=== PATIENT | female | born 1970 | race Caucasian/White ===

== ENCOUNTER 2024-09-11 16:02 | Inpatient (IN) | payer MEDICAID, SELFPAY ==
--- NOTE | ~2024-09-11 | US_ITS ---
CLINICAL HISTORY: sudden incontinence US Renal Comparison: None provided Findings: Right kidney normal size and echotexture, 10 cm length. Left kidney normal size and echotexture, 9.5 cm length. No hydronephrosis of either kidney. Normal color Doppler IMPRESSION: 1. Normal kidneys. This document has been electronically signed by: Claudia Watson MD on 09/24/2024 19:23:38
--- NOTE | ~2024-09-11 | CT_ITS ---
CLINICAL HISTORY: Pt reports enlarged palpable mass over [address] head without contrast Comparison: None provided Findings: No intra-axial mass, midline shift, hydrocephalus, or acute hemorrhage. No significant atrophy-like change or white matter disease. The visualized paranasal sinuses and mastoid air cells are normal. The orbits are within normal limits. Well-defined ovoid subcutaneous soft tissue density with scattered calcifications in the left lateral scalp measuring 1.5 x 1.2 cm. There is no acute fracture. IMPRESSION: 1. No acute intracranial findings. 2. Well-defined ovoid subcutaneous soft tissue density with scattered calcifications in the left lateral scalp measuring 1.5 x 1.2 cm, likely a sebaceous cyst. Given growth, consider histologic sampling. This document has been electronically signed by: Lupe Mathur MD on 09/13/2024 17:55:09
[2024-09-11 16:39] VITALS: BP 134/73; PULSE 71; RESP 18; TEMP 36.1; O2SAT 97
--- NOTE | 2024-09-11 17:54 | HE.PHANOTE ---
Addendum entered by Yousif Mayes [facility] 09/11/24 18:13: Nurse Estephania Raza was able to verify with Luz Valentine RN at [facility] [phone] that patient's methadone dose is 100 mg daily (dispensed to patient weekly). Original Note: RE: METHADONE DOSING Patient was at [facility] from 09/10/24 to 09/11/24 and received methadone 100 mg on 09/11/24@0828. Nurse Estephania Raza will leave note for tomorrow morning staff to fill out methadone verification form with methadone clinic.
--- NOTE | 2024-09-11 19:21 | PC.ADMIT ---
Traci? is a 54yr old woman with h/o MDD, anxiety & Borderline personality disorder. Traci was transferred here from [facility]. She?s admitted to , on a CV, for increasing depression & SI with a plan to overdose. She has a history of suicide attempts by overdose. She has had 4 inpatient psych hospitalizations, most recently in July 2024. Traci is A&Ox4, pleasant & cooperative with admission process. She endorses passive SI but contracts for safety while here. She denies HI/AVH. Traci has psych providers and has signed releases. Skin check is unremarkable. She was oriented to the unit & placed on 15min safety checks. She is in recovery takes daily methadone. Dose has been confirmed with [facility] in [place], [place]. She has her methadone dispensed weekly.
[2024-09-11 20:00] VITALS: BP 112/62; PULSE 54; RESP 15; TEMP 36.7; O2SAT 97
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
[2024-09-12] MEDS: methADONE HCl 20 MG/2 ML ORAL.CONC 100 MG PO (07:55)
[2024-09-12 08:06] VITALS: BP 110/76; PULSE 63; RESP 16; TEMP 36.6; O2SAT 97
[2024-09-12] MEDS: Venlafaxine HCl ER 150 MG CAP.ER.24H PO (08:39)
[2024-09-12 09:25] LABS: Hemoglobin A1C 116.7479 umol/L; Total Hemoglobin (HGBA1C) 3574.9326 umol/L
[2024-09-12 09:41] LABS: Cholesterol 220 mg/dL (<200); HDL Cholesterol 70 mg/dL (>40); Magnesium 2.4 mg/dL (1.6-2.6); Triglycerides 105 mg/dL (<150)
[2024-09-12 09:59] LABS: Free T4 (Free Thyroxine) 0.87 ng/dL (0.71-1.85); Thyroid Stimulating Hormone 1.07 uIU/mL (0.32-4.0)
[2024-09-12 10:08] LABS: Folate 10.7 ng/mL (> or = 4.0); Vitamin B12 469 pg/mL (200-900)
[2024-09-12] MEDS: Magnesium Hydrox/Alum Hydrox 30 ML ORAL.SUSP PO (10:53)
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
[2024-09-12 13:22] LABS: Appearance Urine Clear; Glucose Urine UA Negative (Negative); PH 6.0 (5.0-9.0); Specific Gravity - Urine <= 1.005 (1.005-1.025); UMIC TRIGGER UACC YES
[2024-09-12] MEDS: Nicotine 21 MG PATCH.TD24 TRANSDERMA (13:47)
[2024-09-12 14:24] LABS: UACC Culture Trigger YES
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
[2024-09-12 20:00] VITALS: BP 110/59; PULSE 70; RESP 15; TEMP 36.6; O2SAT 97
--- NOTE | 2024-09-13 05:35 | P.PNPSI_ITS ---
Subjective Subjective Date of Service: 09/13/24 Reason For Visit: MDD,borderline personality disorder,opiate use d/o Subjective Notes: Conditional Voluntary Interim History: Pt seen, discussed with the team. Today, she is willing to do CAT scan to begin to evaluate the mass she reports on her head which is increasing in size. CAT completed. Further questioning of Xanax regime-last OP rx 2 mg tid, not qid. As a result, tid dosing will continue. Pt on the phone, talking with family, visable in milieu. Medication Compliance: Yes Side effects from medications: No Attending Groups: Intermittent Review of Systems Acute medical concerns: No ?Mass on her head, increasing in size Medical Review of Systems: unchanged Review of Systems Review of Systems Denied today Mental Status Exam Mental Status Exam Patient Appearance: Appropriate Patient Orientation: Person, Place, Time and Situation Level of Consciousness: Alert Patient Behavior: Talkative and Good Eye Contact Mood Description: Depressed Affect Description: Flat (worried about her health and mass on her head) Patient Cognition Impaired: No Ability to Follow Directions: Fair Speech Pattern: Spontaneous Speech Memory Description: Episodic Impaired Hallucinations: None Delusions: Not Present Perceptual Disturbances: Depersonalization Thought Process: Rumination Thought Content: positive for Perseveration and positive for Suicidal Ideation Depressive Symptoms: Increased Anxiety and Thoughts of /Suicide Judgement: Fair Diagnostics Vital Signs (24Hr): Vital Signs - 24 hr 09/12/24 08:06 09/12/24 20:00 Temperature 97.9 F 98 F Pulse Rate 63 70 Respiratory Rate 16 15 Blood Pressure 110/76 110/59 L Pulse Oximetry 97 97 Oxygen Delivery Method Room Air Labs Labs: Laboratory Results - last 48 hr 09/12/24 09/12/24 08:50 12:25 Estimat Average Glucose 100 Hemoglobin A1c % 5.1 Magnesium 2.4 Triglycerides 105 Cholesterol 220 H LDL Cholesterol, Calc 129 H HDL Cholesterol 70 Vitamin B12 469 Folate 10.7 TSH 1.07 Free T4 0.87 Urine Color Yellow Urine Appearance Clear Urine pH 6.0 Ur Specific [place] <= 1.005 Urine Protein Negative Urine Glucose (UA) Negative Urine Ketones Negative Urine Blood Negative Urine Nitrite Negative Ur Leukocyte Esterase Small (1+) H Urine RBC 0-2 Urine WBC 0-5 Ur Squamous Epith Cells 6-10 Urine Bacteria Trace Hyaline Casts 0-2 Medications Medications Current Medications Acetaminophen (Acetaminophen 325 Mg Tablet) 975 mg PO Q6H PRN PRN Reason: Headache/Pain, Scale 1-10 Al Hydroxide/Mg Hydroxide (Magnesium Hydrox/Alum Hydrox 30 Ml Oral.Susp) 30 ml PO Q6H PRN PRN Reason: Heartburn/Nausea Last Admin: 09/12/24 10:53 Dose: 30 ml Alprazolam (Alprazolam 0.5 Mg Tablet) 2 mg PO TID [facility] Last Admin: 09/12/24 20:38 Dose: 2 mg Hydroxyzine HCl (Hydroxyzine Hcl 25 Mg Tablet) 25 mg PO Q6H PRN PRN Reason: mild anxiety Lamotrigine (Lamotrigine 100 Mg Tablet) 200 mg PO BID [facility] Last Admin: 09/12/24 20:38 Dose: 200 mg Magnesium Hydroxide (Milk Of Magnesia 30 Ml Oral.Susp) 30 ml PO DAILY PRN PRN Reason: Constipation Methadone HCl (Methadone Hcl 20 Mg/2 Ml Oral.Conc) 100 mg PO DAILY@0800 [facility] Last Admin: 09/12/24 07:55 Dose: 100 mg Nicotine (Nicotine 21 Mg Patch.Td24) 21 mg TRANSDERMA DAILY [facility] Ondansetron HCl (Ondansetron Odt 4 Mg Tab.Rapdis) 4 mg TRANSLINGU Q8H PRN PRN Reason: Nausea and Vomiting Last Admin: 09/12/24 21:58 Dose: 4 mg Pregabalin (Pregabalin 100 Mg Capsule) 100 mg PO BID [facility] Last Admin: 09/12/24 20:39 Dose: 100 mg Trazodone HCl (Trazodone Hcl 50 Mg Tablet) 50 mg PO BEDTIME MRX1 PRN PRN Reason: Insomnia Valacyclovir HCl (Valacyclovir Hcl 1,000 Mg Tablet) 1,000 mg PO DAILY [facility] Last Admin: 09/12/24 08:39 Dose: 1,000 mg Venlafaxine HCl (Venlafaxine Hcl Er 150 Mg Cap.Er.24h) 150 mg PO DAILY [facility] Last Admin: 09/12/24 08:39 Dose: 150 mg Allergies Allergies Allergy/AdvReac Type Severity Reaction Status Date / Time bupropion (From Wellbutrin) Allergy Severe Hives Verified 09/11/24 13:51 phenobarbital Allergy Severe Hives Verified 09/11/24 13:51 risperidone (From Risperdal) Allergy Severe Hives Verified 09/11/24 13:51 Sulfa (Sulfonamide Allergy Severe Hives Verified 09/11/24 13:51 Antibiotics) Assessment & Plan Assessment & Plan (1) Recurrent major depression: Status: Acute Code(s): F33.9 - Major depressive disorder, recurrent, unspecified (2) Opioid dependence on maintenance agonist therapy, no symptoms: Status: Acute Code(s): F11.20 - Opioid dependence, uncomplicated (3) Benzodiazepine dependence: Status: Acute Code(s): F13.20 - Sedative, hypnotic or anxiolytic dependence, uncomplicated Plan Admit CV, 15 minute checks Collateral Contact Diagnostics as needed ?neuro eval Encourage full milieu Continue current regime at this time Discharge planning 09/13 CAT Brain Continue current tx at this time, await results of CAT Reason for continued inpatient stay Substantial Risk for: rapid decompensation and med/psych decompensation Time Spent With Patient Time: Total time managing care of this patient today ____ minutes.
[2024-09-13] MEDS: methADONE HCl 20 MG/2 ML ORAL.CONC 100 MG PO (07:45)
[2024-09-13 08:27] VITALS: BP 105/58; PULSE 65; RESP 16; TEMP 36.6; O2SAT 98
[2024-09-13] MEDS: Nicotine 21 MG PATCH.TD24 TRANSDERMA (08:31)
[2024-09-13] MEDS: Venlafaxine HCl ER 150 MG CAP.ER.24H PO (08:31)
[2024-09-13 20:00] VITALS: BP 104/52; PULSE 74; RESP 15; TEMP 36.6; O2SAT 94
[2024-09-14] MEDS: methADONE HCl 20 MG/2 ML ORAL.CONC 100 MG PO (07:39)
[2024-09-14 08:00] VITALS: BP 106/64; PULSE 70; RESP 16; TEMP 36.4; O2SAT 97
[2024-09-14] MEDS: Venlafaxine HCl ER 150 MG CAP.ER.24H PO (08:35)
[2024-09-14] MEDS: Nicotine 21 MG PATCH.TD24 TRANSDERMA (08:35)
--- NOTE | 2024-09-14 15:48 | P.PNPSI_ITS ---
Subjective Subjective Date of Service: 09/14/24 Reason For Visit: MDD,borderline personality disorder,opiate use d/o Subjective Notes: Conditional Voluntary Healthcare Proxy: No Guardianship: No Medical Problems Affecting Mental Status: No Interim History: Review of CAT results and likelihood of sebaceous cyst with recommendation for histologic sampling. Pt will follow up with PCP upon discharge to schedule this (Dr. Woodward and GISSEL Carlson, [facility], [facility] [phone]) Review of medications and recent changes. Sertraline was cross tapered to Venlafaxine with current dose being in place pt reports for 6-7 weeks. Hx of Wellbutrin trial. Pt reports no improvement. Discussed escitalopram trial-pt agrees, will begin to cross taper Medication Compliance: Yes Side effects from medications: No (??) Attending Groups: No Review of Systems Review of Systems Denies Mental Status Exam Mental Status Exam Patient Appearance: Appropriate Patient Orientation: Person, Place, Time and Situation Level of Consciousness: Alert Patient Behavior: Talkative and Good Eye Contact Mood Description: Depressed Affect Description: Flat (worried about her health and mass on her head) Patient Cognition Impaired: No Ability to Follow Directions: Fair Speech Pattern: Spontaneous Speech Memory Description: Episodic Impaired Hallucinations: None Delusions: Not Present Perceptual Disturbances: Depersonalization Thought Process: Rumination Thought Content: positive for Perseveration and positive for Suicidal Ideation Depressive Symptoms: Increased Anxiety and Thoughts of /Suicide Judgement: Fair Diagnostics Vital Signs (24Hr): Vital Signs - 24 hr 09/13/24 20:00 09/14/24 08:00 Temperature 97.9 F 97.5 F Pulse Rate 74 70 Respiratory Rate 15 16 Blood Pressure 104/52 L 106/64 Pulse Oximetry 94 97 Oxygen Delivery Method Room Air Medications Medications Current Medications Acetaminophen (Acetaminophen 325 Mg Tablet) 975 mg PO Q6H PRN PRN Reason: Headache/Pain, Scale 1-10 Al Hydroxide/Mg Hydroxide (Magnesium Hydrox/Alum Hydrox 30 Ml Oral.Susp) 30 ml PO Q6H PRN PRN Reason: Heartburn/Nausea Last Admin: 09/12/24 10:53 Dose: 30 ml Alprazolam (Alprazolam 0.5 Mg Tablet) 2 mg PO TID PILO Last Admin: 09/14/24 08:34 Dose: 2 mg Hydroxyzine HCl (Hydroxyzine Hcl 25 Mg Tablet) 25 mg PO Q6H PRN PRN Reason: mild anxiety Lamotrigine (Lamotrigine 100 Mg Tablet) 200 mg PO BID [facility] Last Admin: 09/14/24 08:35 Dose: 200 mg Magnesium Hydroxide (Milk Of Magnesia 30 Ml Oral.Susp) 30 ml PO DAILY PRN PRN Reason: Constipation Methadone HCl (Methadone Hcl 20 Mg/2 Ml Oral.Conc) 100 mg PO DAILY@0800 [facility] Last Admin: 09/14/24 07:39 Dose: 100 mg Nicotine (Nicotine 21 Mg Patch.Td24) 21 mg TRANSDERMA DAILY [facility] Last Admin: 09/14/24 08:35 Dose: 21 mg Ondansetron HCl (Ondansetron Odt 4 Mg Tab.Rapdis) 4 mg TRANSLINGU Q8H PRN PRN Reason: Nausea and Vomiting Last Admin: 09/13/24 07:45 Dose: 4 mg Pregabalin (Pregabalin 100 Mg Capsule) 100 mg PO BID [facility] Last Admin: 09/14/24 08:35 Dose: 100 mg Trazodone HCl (Trazodone Hcl 50 Mg Tablet) 50 mg PO BEDTIME MRX1 PRN PRN Reason: Insomnia Valacyclovir HCl (Valacyclovir Hcl 1,000 Mg Tablet) 1,000 mg PO DAILY [facility] Last Admin: 09/14/24 08:35 Dose: 1,000 mg Venlafaxine HCl (Venlafaxine Hcl Er 150 Mg Cap.Er.24h) 150 mg PO DAILY [facility] Last Admin: 09/14/24 08:35 Dose: 150 mg Allergies Allergies Allergy/AdvReac Type Severity Reaction Status Date / Time bupropion (From Wellbutrin) Allergy Severe Hives Verified 09/11/24 13:51 phenobarbital Allergy Severe Hives Verified 09/11/24 13:51 risperidone (From Risperdal) Allergy Severe Hives Verified 09/11/24 13:51 Sulfa (Sulfonamide Allergy Severe Hives Verified 09/11/24 13:51 Antibiotics) Assessment & Plan Assessment & Plan (1) Recurrent major depression: Status: Acute Code(s): F33.9 - Major depressive disorder, recurrent, unspecified (2) Opioid dependence on maintenance agonist therapy, no symptoms: Status: Acute Code(s): F11.20 - Opioid dependence, uncomplicated (3) Benzodiazepine dependence: Status: Acute Code(s): F13.20 - Sedative, hypnotic or anxiolytic dependence, uncomplicated Plan Admit CV, 15 minute checks Collateral Contact Diagnostics as needed ?neuro eval Encourage full milieu Continue current regime at this time Discharge planning 09/13 CAT Brain Continue current tx at this time, await results of CAT 09/14 Cross taper to decrease Venlafaxine and titrate Escitalopram for trial Reason for continued inpatient stay Substantial Risk for: rapid decompensation Time Spent With Patient Time: Total time managing care of this patient today ____ minutes.
[2024-09-14 20:00] VITALS: BP 99/58; PULSE 72; RESP 16; TEMP 36.4; O2SAT 94
[2024-09-15] MEDS: methADONE HCl 20 MG/2 ML ORAL.CONC 100 MG PO (07:49)
[2024-09-15 07:54] VITALS: BP 103/61; PULSE 64; TEMP 36.3; O2SAT 98
[2024-09-15] MEDS: Nicotine 21 MG PATCH.TD24 TRANSDERMA (08:18)
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
[2024-09-15 20:00] VITALS: BP 124/71; PULSE 86; RESP 18; TEMP 36.3; O2SAT 96
[2024-09-16] MEDS: methADONE HCl 20 MG/2 ML ORAL.CONC 100 MG PO (07:42)
[2024-09-16 08:11] VITALS: BP 110/59; PULSE 65; TEMP 36.2; O2SAT 96
[2024-09-16] MEDS: Nicotine 21 MG PATCH.TD24 TRANSDERMA (08:39)
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
[2024-09-16 19:49] VITALS: BP 103/60; PULSE 82; TEMP 36.4; O2SAT 95
[2024-09-17] MEDS: methADONE HCl 20 MG/2 ML ORAL.CONC 100 MG PO (07:43)
[2024-09-17 08:18] VITALS: BP 106/59; PULSE 65; TEMP 36.4; O2SAT 95
--- NOTE | 2024-09-17 08:59 | HO.PSYCHPN ---
Subjective Subjective Date of Service: 09/17/24 Reason For Visit: MDD,borderline personality disorder,opiate use d/o Subjective Notes: Conditional Voluntary Interim History: Patient states that she is ?not so good. She notes that she has not been feeling great since she started taking venlafaxine. She notes adverse reactions of the medication including passing out while sitting at a gas station in her parked vehicle and losing sensation from her waist down, over a week ago; those symptoms completely resolved. She reports severe anxiety and depression. She endorses SI with a plan to take a couple of bottle of pills and not wake up. She currently denies HI/AH/VH. Medication Compliance: Yes Side effects from medications: No Attending Groups: Intermittent Review of Systems Acute medical concerns: No Mental Status Exam Mental Status Exam Narrative: Appearance: Casually dressed, adequate hygiene Behavior: Calm and cooperative throughout the interview. Eye contact is appropriate, and there are no signs of psychomotor agitation or retardation Speech: Talkative and spontaneous Thought process: logical and goal-directed Thought content: Suicide ideation Mood: Not so good Affect: Flat SI: Reports HI:denies VH/AH:none Delusions: none Insight/judment: Impaired insight and judgment Memory/cog: Alert, oriented x 4. grossly intact to conversational testing Diagnostics Vital Signs (24Hr): Vital Signs - 24 hr 09/16/24 19:49 09/17/24 08:18 Temperature 97.5 F 97.5 F Pulse Rate 82 65 Blood Pressure 103/60 106/59 L Pulse Oximetry 95 95 Oxygen Delivery Method Room Air Room Air Medications Medications Current Medications Acetaminophen (Acetaminophen 325 Mg Tablet) 975 mg PO Q6H PRN PRN Reason: Headache/Pain, Scale 1-10 Al Hydroxide/Mg Hydroxide (Magnesium Hydrox/Alum Hydrox 30 Ml Oral.Susp) 30 ml PO Q6H PRN PRN Reason: Heartburn/Nausea Last Admin: 09/12/24 10:53 Dose: 30 ml Alprazolam (Alprazolam 0.5 Mg Tablet) 2 mg PO TID [facility] Last Admin: 09/16/24 20:35 Dose: 2 mg Aripiprazole (Aripiprazole 2 Mg Tablet) 2 mg PO BEDTIME PILO Last Admin: 09/16/24 20:35 Dose: 2 mg Escitalopram Oxalate (Escitalopram Oxalate 5 Mg Tablet) 5 mg PO DAILY [facility] Last Admin: 09/16/24 08:39 Dose: 5 mg Hydroxyzine HCl (Hydroxyzine Hcl 25 Mg Tablet) 25 mg PO Q6H PRN PRN Reason: mild anxiety Lamotrigine (Lamotrigine 100 Mg Tablet) 200 mg PO BID [facility] Last Admin: 09/16/24 20:35 Dose: 200 mg Magnesium Hydroxide (Milk Of Magnesia 30 Ml Oral.Susp) 30 ml PO DAILY PRN PRN Reason: Constipation Methadone HCl (Methadone Hcl 20 Mg/2 Ml Oral.Conc) 100 mg PO DAILY@0800 [facility] Last Admin: 09/17/24 07:43 Dose: 100 mg Nicotine (Nicotine 21 Mg Patch.Td24) 21 mg TRANSDERMA DAILY [facility] Last Admin: 09/16/24 08:39 Dose: 21 mg Ondansetron HCl (Ondansetron Odt 4 Mg Tab.Rapdis) 4 mg TRANSLINGU Q8H PRN PRN Reason: Nausea and Vomiting Last Admin: 09/16/24 17:25 Dose: 4 mg Pregabalin (Pregabalin 100 Mg Capsule) 100 mg PO 0900,1500 [facility] Last Admin: 09/16/24 14:40 Dose: 100 mg Valacyclovir HCl (Valacyclovir Hcl 1,000 Mg Tablet) 1,000 mg PO DAILY [facility] Last Admin: 09/16/24 08:39 Dose: 1,000 mg Venlafaxine HCl 37.5 mg/ (Venlafaxine HCl 75 mg) 112.5 mg PO DAILY [facility] Last Admin: 09/16/24 08:39 Dose: 112.5 mg Allergies Allergies Allergy/AdvReac Type Severity Reaction Status Date / Time bupropion (From Wellbutrin) Allergy Severe Hives Verified 09/11/24 13:51 phenobarbital Allergy Severe Hives Verified 09/11/24 13:51 risperidone (From Risperdal) Allergy Severe Hives Verified 09/11/24 13:51 Sulfa (Sulfonamide Allergy Severe Hives Verified 09/11/24 13:51 Antibiotics) Assessment & Plan Assessment & Plan (1) Recurrent major depression: Status: Acute Code(s): F33.9 - Major depressive disorder, recurrent, unspecified (2) Opioid dependence on maintenance agonist therapy, no symptoms: Status: Acute Code(s): F11.20 - Opioid dependence, uncomplicated (3) Benzodiazepine dependence: Status: Acute Code(s): F13.20 - Sedative, hypnotic or anxiolytic dependence, uncomplicated Plan Admit CV, 15 minute checks Collateral Contact Diagnostics as needed ?neuro eval Encourage full milieu Continue current regime at this time Discharge planning 09/13 CAT Brain Continue current tx at this time, await results of CAT 09/14 Cross taper to decrease Venlafaxine and titrate Escitalopram for trial 09/16 Continue tx 09/17: Patient states that she is ?not so good. She notes that she has not been feeling great since she started taking venlafaxine. She notes adverse reactions of the medication including passing out while sitting at a gas station in her parked vehicle and losing sensation from her waist down, over a week ago; those symptoms completely resolved. She reports severe anxiety and depression. She endorses SI with a plan to take a couple of bottle of pills and not wake up. She currently denies HI/AH/VH. Continue current treatment regimen. Patient educated on: therapeutic strategies Reason for continued inpatient stay Substantial Risk for: harm to self and rapid decompensation Time Spent With Patient Time: Total time managing care of this patient today ____ minutes.
[2024-09-17] MEDS: Nicotine 21 MG PATCH.TD24 TRANSDERMA (09:12)
[2024-09-17 20:00] VITALS: BP 131/61; PULSE 77; TEMP 36.3; O2SAT 90
[2024-09-18] MEDS: methADONE HCl 20 MG/2 ML ORAL.CONC 100 MG PO (07:54)
[2024-09-18 08:09] VITALS: BP 115/60; PULSE 64; TEMP 36.3; O2SAT 96
[2024-09-18] MEDS: Nicotine 21 MG PATCH.TD24 TRANSDERMA (08:40)
--- NOTE | 2024-09-18 10:54 | P.PNPSI_ITS ---
Subjective Subjective Date of Service: 09/18/24 Reason For Visit: MDD,borderline personality disorder,opiate use d/o Subjective Notes: Conditional Voluntary Healthcare Proxy: No Guardianship: No Medical Problems Affecting Mental Status: No Interim History: Pt sleeping today when attempted visit. Plan to increase Lexapro to 10 mg 09/19 we will proceed with. Medication Compliance: Yes Side effects from medications: No Attending Groups: Yes Review of Systems Acute medical concerns: No Review of Systems Review of Systems Yes Unobtainable due to mental status Mental Status Exam Mental Status Exam Patient Appearance: Appropriate Patient Behavior: Asleep Diagnostics Vital Signs (24Hr): Vital Signs - 24 hr 09/17/24 20:00 09/18/24 08:09 Temperature 97.4 F 97.4 F Pulse Rate 77 64 Blood Pressure 131/61 115/60 Pulse Oximetry 90 L 96 Oxygen Delivery Method Room Air Room Air Medications Medications Current Medications Acetaminophen (Acetaminophen 325 Mg Tablet) 975 mg PO Q6H PRN PRN Reason: Headache/Pain, Scale 1-10 Al Hydroxide/Mg Hydroxide (Magnesium Hydrox/Alum Hydrox 30 Ml Oral.Susp) 30 ml PO Q6H PRN PRN Reason: Heartburn/Nausea Last Admin: 09/12/24 10:53 Dose: 30 ml Alprazolam (Alprazolam 0.5 Mg Tablet) 2 mg PO TID [facility] Last Admin: 09/18/24 08:41 Dose: 2 mg Aripiprazole (Aripiprazole 2 Mg Tablet) 2 mg PO BEDTIME [facility] Last Admin: 09/17/24 21:39 Dose: 2 mg Escitalopram Oxalate (Escitalopram Oxalate 5 Mg Tablet) 5 mg PO DAILY [facility] Last Admin: 09/18/24 08:40 Dose: 5 mg Hydroxyzine HCl (Hydroxyzine Hcl 25 Mg Tablet) 25 mg PO Q6H PRN PRN Reason: mild anxiety Lamotrigine (Lamotrigine 100 Mg Tablet) 200 mg PO BID [facility] Last Admin: 09/18/24 08:40 Dose: 200 mg Magnesium Hydroxide (Milk Of Magnesia 30 Ml Oral.Susp) 30 ml PO DAILY PRN PRN Reason: Constipation Methadone HCl (Methadone Hcl 20 Mg/2 Ml Oral.Conc) 100 mg PO DAILY@0800 [facility] Last Admin: 09/18/24 07:54 Dose: 100 mg Nicotine (Nicotine 21 Mg Patch.Td24) 21 mg TRANSDERMA DAILY [facility] Last Admin: 09/18/24 08:40 Dose: 21 mg Ondansetron HCl (Ondansetron Odt 4 Mg Tab.Rapdis) 4 mg TRANSLINGU Q8H PRN PRN Reason: Nausea and Vomiting Last Admin: 09/17/24 17:46 Dose: 4 mg Pregabalin (Pregabalin 100 Mg Capsule) 100 mg PO 0900,1500 [facility] Last Admin: 09/18/24 08:41 Dose: 100 mg Valacyclovir HCl (Valacyclovir Hcl 1,000 Mg Tablet) 1,000 mg PO DAILY [facility] Last Admin: 09/18/24 08:41 Dose: 1,000 mg Venlafaxine HCl 37.5 mg/ (Venlafaxine HCl 75 mg) 112.5 mg PO DAILY [facility] Last Admin: 09/18/24 08:41 Dose: 112.5 mg Allergies Allergies Allergy/AdvReac Type Severity Reaction Status Date / Time bupropion (From Wellbutrin) Allergy Severe Hives Verified 09/11/24 13:51 phenobarbital Allergy Severe Hives Verified 09/11/24 13:51 risperidone (From Risperdal) Allergy Severe Hives Verified 09/11/24 13:51 Sulfa (Sulfonamide Allergy Severe Hives Verified 09/11/24 13:51 Antibiotics) Assessment & Plan Assessment & Plan (1) Recurrent major depression: Status: Acute Code(s): F33.9 - Major depressive disorder, recurrent, unspecified (2) Opioid dependence on maintenance agonist therapy, no symptoms: Status: Acute Code(s): F11.20 - Opioid dependence, uncomplicated (3) Benzodiazepine dependence: Status: Acute Code(s): F13.20 - Sedative, hypnotic or anxiolytic dependence, uncomplicated Plan Admit CV, 15 minute checks Collateral Contact Diagnostics as needed ?neuro eval Encourage full milieu Continue current regime at this time Discharge planning 09/13 CAT Brain Continue current tx at this time, await results of CAT 09/14 Cross taper to decrease Venlafaxine and titrate Escitalopram for trial 09/16 Continue tx 09/17: Patient states that she is ?not so good. She notes that she has not been feeling great since she started taking venlafaxine. She notes adverse reactions of the medication including passing out while sitting at a gas station in her parked vehicle and losing sensation from her waist down, over a week ago; those symptoms completely resolved. She reports severe anxiety and depression. She endorses SI with a plan to take a couple of bottle of pills and not wake up. She currently denies HI/AH/VH. Continue current treatment regimen. 09/18: As planned, increase Lexapro to 10 mg. Continue Venlafaxine tapering (decreased to 112.5 from 150 mg this week). Reason for continued inpatient stay Substantial Risk for: rapid decompensation Time Spent With Patient Time: Total time managing care of this patient today ____ minutes.
[2024-09-19] MEDS: methADONE HCl 20 MG/2 ML ORAL.CONC 100 MG PO (07:51)
[2024-09-19 08:00] VITALS: BP 104/59; PULSE 67; TEMP 36.8; O2SAT 95
[2024-09-19] MEDS: Nicotine 21 MG PATCH.TD24 TRANSDERMA (08:08)
[2024-09-19 14:05] VITALS: BP 109/57; PULSE 67; RESP 14; TEMP 36.9; O2SAT 96
[2024-09-19 14:32] LABS: Glucose, Whole Blood 105 mg/dL (60-115)
--- NOTE | 2024-09-19 14:38 | PM.EVENT ---
Event Note Date of Service: 09/19/24 Event Note: called by RN for report of unwitnessed fall Pt reports this is her 4th episode in the last 3 weeks of amnesia followed by fall without clear LOC. She just feels generalized weakness all of a sudden then falls. Denies any head trauma, headache, joint pain, arm pain, or leg pain. Pt is fully alert + oriented, lungs clear, RRR no m/r/g, no focal weakness noted, ambulating with no difficulty. Pt does have a sebaceous cyst over the L scalp and that was also noted on CT head 09/13/25. Suspect symptoms related to either her underlying psychiatric condition or medication changes being made by psychiatry team. Suggest review of medication changes; will order orthostatic vital signs; may benefit from PT consult. Time Spent With Patient Time: Total time managing care of this patient today ____ minutes.
[2024-09-19 14:48] VITALS: BP 117/57; PULSE 87; RESP 14; O2SAT 93
[2024-09-19 14:49] VITALS: BP 92/53; PULSE 81; RESP 16; O2SAT 94
[2024-09-19 14:50] VITALS: BP 97/54; PULSE 78; RESP 16; O2SAT 96
--- NOTE | 2024-09-19 15:23 | PC.NURSE ---
POST FALL At 1405 pt's roommate approached staff to state pt had fallen in her room. Pt was then found seated on the floor in her room. Pt awake and alert. Pt reported fall in room that was unwitnessed by staff. Pt reported she was standing in front of her table, her legs became weak, and she fell backwards onto her buttocks. Pt denied hitting her head. Pt's roommate present in room at that time and reported she witnessed the same events pt reported to staff. Pt denied pain/discomfort. Pt denied dizziness or lightheadedness. VS and POC obtained. Pt was assisted back to bed. Pt continued to endorse weakness in her legs, and stated she was confused to the time. Pt reported she believed it was 0800 and stated that she did not remember any events from today prior to moments before the fall. Pt stated she remembered getting out of bed to look at the meal tray that was on her table. Pt stated she believed that was her breakfast tray. Pt stated as she was leaning forward to read the ticket on the meal tray, her legs became weak and she sustained the fall. information security officer Ellen Marion aware and at bedside. Covering provider Dr. Dior notified. Nursing supervisor home energy consultant Rohini Shafer and hospitalist Dr. Coates notified. Nursing supervisor home energy consultant, and Dr. Coates at bedside to evaluate. Orthostatic BPs obtained and documented per orders. Per Dr. Dior afternoon Lyrica and Xanax doses held. Pt placed on high fall risk precautions and 5 minute checks for increased safety.
--- NOTE | 2024-09-19 17:23 | HO.PSYCHPN ---
Subjective Subjective Date of Service: 09/19/24 Reason For Visit: MDD,borderline personality disorder,opiate use d/o Interim History: Patient feels unsteady and dizzy and wondering if it is related to the transition from Effexor to Lexapro. She had an unwitnessed fall on her buttocks. Seen by medicine. Patient's Xanax and Lyrica midday doses was held. Remains depressed and helpless/hopeless. Review of Systems Review of Systems Denies Yes Unobtainable due to mental status Reports vertigo and Reports dizziness Reports vertigo, Reports dizziness, Reports lack of coordination and Reports Sensory deficit (Neuro) Mental Status Exam Mental Status Exam Narrative: Appearance: Casually dressed, adequate hygiene Behavior: Calm and cooperative throughout the interview. Eye contact is appropriate, and there are no signs of psychomotor agitation or retardation Speech: Talkative and spontaneous Thought process: logical and goal-directed Thought content: Suicide ideation Mood: Not so good Affect: Flat SI: Reports HI:denies VH/AH:none Delusions: none Insight/judment: Impaired insight and judgment Memory/cog: Alert, oriented x 4. grossly intact to conversational testing Patient Appearance: Appropriate Patient Orientation: Person, Place, Time and Situation Level of Consciousness: Alert Patient Behavior: Asleep Mood Description: Depressed Affect Description: Flat (worried about her health and mass on her head) Patient Cognition Impaired: No Ability to Follow Directions: Fair Speech Pattern: Spontaneous Speech Memory Description: Episodic Impaired Diagnostics Vital Signs (24Hr): Vital Signs - 24 hr 09/19/24 08:00 09/19/24 14:05 09/19/24 14:48 Temperature 98.2 F 98.4 F Pulse Rate 67 67 87 Respiratory Rate 14 14 Blood Pressure 104/59 L 109/57 L 117/57 L Pulse Oximetry 95 96 93 Oxygen Delivery Method Room Air Room Air 09/19/24 14:49 09/19/24 14:50 Temperature Pulse Rate 81 78 Respiratory Rate 16 16 Blood Pressure 92/53 L 97/54 L Pulse Oximetry 94 96 Oxygen Delivery Method Room Air Room Air Labs Labs: Laboratory Results - last 48 hr 09/19/24 14:28 POC Glucose 105 Medications Medications Current Medications Acetaminophen (Acetaminophen 325 Mg Tablet) 975 mg PO Q6H PRN PRN Reason: Headache/Pain, Scale 1-10 Al Hydroxide/Mg Hydroxide (Magnesium Hydrox/Alum Hydrox 30 Ml Oral.Susp) 30 ml PO Q6H PRN PRN Reason: Heartburn/Nausea Last Admin: 09/12/24 10:53 Dose: 30 ml Alprazolam (Alprazolam 0.5 Mg Tablet) 2 mg PO TID [facility] On Hold: 09/19/24 14:44 Last Admin: 09/19/24 08:32 Dose: 2 mg Escitalopram Oxalate (Escitalopram Oxalate 10 Mg Tablet) 10 mg PO DAILY [facility] Last Admin: 09/19/24 08:07 Dose: 10 mg Hydroxyzine HCl (Hydroxyzine Hcl 25 Mg Tablet) 25 mg PO Q6H PRN PRN Reason: mild anxiety Lamotrigine (Lamotrigine 100 Mg Tablet) 200 mg PO BID [facility] Last Admin: 09/19/24 08:07 Dose: 200 mg Magnesium Hydroxide (Milk Of Magnesia 30 Ml Oral.Susp) 30 ml PO DAILY PRN PRN Reason: Constipation Methadone HCl (Methadone Hcl 20 Mg/2 Ml Oral.Conc) 100 mg PO DAILY@0800 [facility] Last Admin: 09/19/24 07:51 Dose: 100 mg Nicotine (Nicotine 21 Mg Patch.Td24) 21 mg TRANSDERMA DAILY [facility] Last Admin: 09/19/24 08:08 Dose: 21 mg Ondansetron HCl (Ondansetron Odt 4 Mg Tab.Rapdis) 4 mg TRANSLINGU Q8H PRN PRN Reason: Nausea and Vomiting Last Admin: 09/18/24 21:20 Dose: 4 mg Pregabalin (Pregabalin 100 Mg Capsule) 100 mg PO 0900,1500 [facility] On Hold: 09/19/24 14:43 Last Admin: 09/19/24 08:07 Dose: 100 mg Valacyclovir HCl (Valacyclovir Hcl 1,000 Mg Tablet) 1,000 mg PO DAILY [facility] Last Admin: 09/19/24 08:07 Dose: 1,000 mg Venlafaxine HCl 37.5 mg/ (Venlafaxine HCl 75 mg) 112.5 mg PO DAILY [facility] Last Admin: 09/19/24 08:07 Dose: 112.5 mg Allergies Allergies Allergy/AdvReac Type Severity Reaction Status Date / Time bupropion (From Wellbutrin) Allergy Severe Hives Verified 09/11/24 13:51 phenobarbital Allergy Severe Hives Verified 09/11/24 13:51 risperidone (From Risperdal) Allergy Severe Hives Verified 09/11/24 13:51 Sulfa (Sulfonamide Allergy Severe Hives Verified 09/11/24 13:51 Antibiotics) Assessment & Plan Assessment & Plan (1) Recurrent major depression: Status: Acute Code(s): F33.9 - Major depressive disorder, recurrent, unspecified (2) Opioid dependence on maintenance agonist therapy, no symptoms: Status: Acute Code(s): F11.20 - Opioid dependence, uncomplicated (3) Benzodiazepine dependence: Status: Acute Code(s): F13.20 - Sedative, hypnotic or anxiolytic dependence, uncomplicated Plan Admit CV, 15 minute checks Collateral Contact Diagnostics as needed ?neuro eval Encourage full milieu Continue current regime at this time Discharge planning 09/13 CAT Brain Continue current tx at this time, await results of CAT 09/14 Cross taper to decrease Venlafaxine and titrate Escitalopram for trial 09/16 Continue tx 09/17: Patient states that she is ?not so good. She notes that she has not been feeling great since she started taking venlafaxine. She notes adverse reactions of the medication including passing out while sitting at a gas station in her parked vehicle and losing sensation from her waist down, over a week ago; those symptoms completely resolved. She reports severe anxiety and depression. She endorses SI with a plan to take a couple of bottle of pills and not wake up. She currently denies HI/AH/VH. Continue current treatment regimen. 09/18: As planned, increase Lexapro to 10 mg. Continue Venlafaxine tapering (decreased to 112.5 from 150 mg this week). 09/19: Some of patient's symptoms are chronic and she has complained of same before. Combination of multiple sedating medications and maybe lowering dose of Effexor. Will attempt decrease in BZD dosing. Per [facility] patient has been on high dose BZD for a long time (Klonopin 2 mg QID a few months ago and switched to Xanax 2 mg TID by her OP treatment team.) Continue monitor cross taper. 5 min checks. Reason for continued inpatient stay Substantial Risk for: harm to self, inability to function and rapid decompensation Time Spent With Patient Time: Total time managing care of this patient today ____ minutes.
--- NOTE | 2024-09-19 18:26 | PC.NURSE ---
Within a half hour after pt's 1405 fall pt requested scheduled 1500 dose of Xanax and Lyrica. Per provider both 1500 doses held. Pt informed of hold order and became upset. Pt reported I've been taking Xanax for 8 years and I will go into immediate withdrawals. I will start having seizures. At 1625 pt reported It's already starting , and then stated she was experiencing diarrhea. Pt reported she believed this was a result of not receiving her 1500 Xanax. Provider made aware of pt's concerns. CIWA-B obtained per provider request, which pt scored 18 and provider made aware. Provider stated he would lift the hold for the HS dose and stated pt could have HS Xanax dose as early as 1900. Pt made aware and stated she was in agreement with plan. Pt received prn Imodium for multiple episodes of loose stool. [ End ]
[2024-09-19 20:00] VITALS: BP 102/52; PULSE 80; RESP 16; TEMP 36.2; O2SAT 97
[2024-09-20] MEDS: methADONE HCl 20 MG/2 ML ORAL.CONC 100 MG PO (07:42)
[2024-09-20 08:00] VITALS: BP 119/63; PULSE 71; TEMP 36.3; O2SAT 94
[2024-09-20] MEDS: Nicotine 21 MG PATCH.TD24 TRANSDERMA (08:33)
--- NOTE | 2024-09-20 09:44 | HO.PSYCHPN ---
Subjective Subjective Date of Service: 09/20/24 Reason For Visit: MDD,borderline personality disorder,opiate use d/o Interim History: Patient reports she was very anxious and had nausea and diarrhea yesterday after the midday dose of Xanax was held due to her fall. She says she has been on Xanax or a benzo for 8 years. She says that yesterday she tripped and wasn't sedated. She was educated about the interactions of her medications (mathadone, bzd, lyrica) and all contributing to fall risk and injury. She was willing to taper down on the Lyrica. She denies any dizziness or sedation today. Remains depressed and helpless/hopeless. Review of Systems Review of Systems Denies Yes Unobtainable due to mental status Reports vertigo and Reports dizziness Reports vertigo, Reports dizziness, Reports lack of coordination and Reports Sensory deficit (Neuro) Mental Status Exam Mental Status Exam Narrative: Appearance: Casually dressed, adequate hygiene Behavior: Calm and cooperative throughout the interview. Eye contact is appropriate, and there are no signs of psychomotor agitation or retardation Speech: Talkative and spontaneous Thought process: logical and goal-directed Thought content: Suicide ideation Mood: Not so good Affect: Flat SI: Reports HI:denies VH/AH:none Delusions: none Insight/judment: Impaired insight and judgment Memory/cog: Alert, oriented x 4. grossly intact to conversational testing Patient Appearance: Appropriate Patient Orientation: Person, Place, Time and Situation Level of Consciousness: Alert Patient Behavior: Asleep Mood Description: Depressed Affect Description: Flat (worried about her health and mass on her head) Patient Cognition Impaired: No Ability to Follow Directions: Fair Speech Pattern: Spontaneous Speech Memory Description: Episodic Impaired Diagnostics Vital Signs (24Hr): Vital Signs - 24 hr 09/19/24 14:05 09/19/24 14:48 09/19/24 14:49 Temperature 98.4 F Pulse Rate 67 87 81 Respiratory Rate 14 14 16 Blood Pressure 109/57 L 117/57 L 92/53 L Pulse Oximetry 96 93 94 Oxygen Delivery Method Room Air Room Air 09/19/24 14:50 09/19/24 20:00 09/20/24 08:00 Temperature 97.2 F 97.3 F Pulse Rate 78 80 71 Respiratory Rate 16 16 Blood Pressure 97/54 L 102/52 L 119/63 Pulse Oximetry 96 97 94 Oxygen Delivery Method Room Air Room Air Room Air Labs Labs: Laboratory Results - last 48 hr 09/19/24 14:28 POC Glucose 105 Medications Medications Current Medications Acetaminophen (Acetaminophen 325 Mg Tablet) 975 mg PO Q6H PRN PRN Reason: Headache/Pain, Scale 1-10 Al Hydroxide/Mg Hydroxide (Magnesium Hydrox/Alum Hydrox 30 Ml Oral.Susp) 30 ml PO Q6H PRN PRN Reason: Heartburn/Nausea Last Admin: 09/12/24 10:53 Dose: 30 ml Alprazolam (Alprazolam 0.5 Mg Tablet) 2 mg PO TID [facility] Last Admin: 09/20/24 08:34 Dose: 2 mg Escitalopram Oxalate (Escitalopram Oxalate 10 Mg Tablet) 10 mg PO DAILY [facility] Last Admin: 09/20/24 08:35 Dose: 10 mg Hydroxyzine HCl (Hydroxyzine Hcl 25 Mg Tablet) 25 mg PO Q6H PRN PRN Reason: mild anxiety Lamotrigine (Lamotrigine 100 Mg Tablet) 200 mg PO BID [facility] Last Admin: 09/20/24 08:34 Dose: 200 mg Loperamide HCl (Loperamide Hcl 2 Mg Capsule) 2 mg PO Q6H PRN PRN Reason: Diarrhea Last Admin: 09/19/24 18:22 Dose: 2 mg Magnesium Hydroxide (Milk Of Magnesia 30 Ml Oral.Susp) 30 ml PO DAILY PRN PRN Reason: Constipation Methadone HCl (Methadone Hcl 20 Mg/2 Ml Oral.Conc) 100 mg PO DAILY@0800 [facility] Last Admin: 09/20/24 07:42 Dose: 100 mg Nicotine (Nicotine 21 Mg Patch.Td24) 21 mg TRANSDERMA DAILY [facility] Last Admin: 09/20/24 08:33 Dose: 21 mg Ondansetron HCl (Ondansetron Odt 4 Mg Tab.Rapdis) 4 mg TRANSLINGU Q8H PRN PRN Reason: Nausea and Vomiting Last Admin: 09/20/24 09:33 Dose: 4 mg Pregabalin (Pregabalin 100 Mg Capsule) 100 mg PO 0900,1500 [facility] On Hold: 09/19/24 14:43 Last Admin: 09/19/24 08:07 Dose: 100 mg Valacyclovir HCl (Valacyclovir Hcl 1,000 Mg Tablet) 1,000 mg PO DAILY [facility] Last Admin: 09/20/24 08:35 Dose: 1,000 mg Venlafaxine HCl 37.5 mg/ (Venlafaxine HCl 75 mg) 112.5 mg PO DAILY [facility] Last Admin: 09/20/24 08:35 Dose: 112.5 mg Allergies Allergies Allergy/AdvReac Type Severity Reaction Status Date / Time bupropion (From Wellbutrin) Allergy Severe Hives Verified 09/11/24 13:51 phenobarbital Allergy Severe Hives Verified 09/11/24 13:51 risperidone (From Risperdal) Allergy Severe Hives Verified 09/11/24 13:51 Sulfa (Sulfonamide Allergy Severe Hives Verified 09/11/24 13:51 Antibiotics) Assessment & Plan Assessment & Plan (1) Recurrent major depression: Status: Acute Code(s): F33.9 - Major depressive disorder, recurrent, unspecified (2) Opioid dependence on maintenance agonist therapy, no symptoms: Status: Acute Code(s): F11.20 - Opioid dependence, uncomplicated (3) Benzodiazepine dependence: Status: Acute Code(s): F13.20 - Sedative, hypnotic or anxiolytic dependence, uncomplicated Plan Admit CV, 15 minute checks Collateral Contact Diagnostics as needed ?neuro eval Encourage full milieu Continue current regime at this time Discharge planning 09/13 CAT Brain Continue current tx at this time, await results of CAT 09/14 Cross taper to decrease Venlafaxine and titrate Escitalopram for trial 09/16 Continue tx 09/17: Patient states that she is ?not so good. She notes that she has not been feeling great since she started taking venlafaxine. She notes adverse reactions of the medication including passing out while sitting at a gas station in her parked vehicle and losing sensation from her waist down, over a week ago; those symptoms completely resolved. She reports severe anxiety and depression. She endorses SI with a plan to take a couple of bottle of pills and not wake up. She currently denies HI/AH/VH. Continue current treatment regimen. 09/18: As planned, increase Lexapro to 10 mg. Continue Venlafaxine tapering (decreased to 112.5 from 150 mg this week). 09/19: Some of patient's symptoms are chronic and she has complained of same before. Combination of multiple sedating medications and maybe lowering dose of Effexor. Will attempt decrease in BZD dosing. Per [facility] patient has been on high dose BZD for a long time (Klonopin 2 mg QID a few months ago and switched to Xanax 2 mg TID by her OP treatment team.) Continue monitor cross taper. 5 min checks. 09/20: Decrease Lyrica to 50 mg BID. Consider slow taper of Xanax. Continue cross taper Effexor to Lexapro per primary team. Reason for continued inpatient stay Substantial Risk for: harm to self, inability to function and rapid decompensation Time Spent With Patient Time: Total time managing care of this patient today ____ minutes.
[2024-09-20 19:56] VITALS: BP 106/59; PULSE 79; RESP 15; TEMP 36.5; O2SAT 96
[2024-09-21] MEDS: methADONE HCl 20 MG/2 ML ORAL.CONC 100 MG PO (07:48)
[2024-09-21 08:00] VITALS: BP 130/67; PULSE 74; RESP 16; TEMP 36.6; O2SAT 95
--- NOTE | 2024-09-21 12:34 | P.PNPSI_ITS ---
Subjective Subjective Date of Service: 09/21/24 Reason For Visit: MDD,borderline personality disorder,opiate use d/o Subjective Notes: Conditional Voluntary Healthcare Proxy: No Guardianship: No Medical Problems Affecting Mental Status: No Interim History: Presents today as overmedicated, however, denies this. Fall over the weekend, I tripped . Denies this being from sedation. Lyrica tapered to 50 mg bid. Reports flu-like sx will test for sars/flu/rsv. Reports Lexapro is not tolerated. Will DC and return to Venlafaxine dosing. Also reports Nicotine Patch is not tolerated, will DC as well. Medication Compliance: Yes Side effects from medications: Yes (GI sx, sedation) Attending Groups: No Review of Systems Review of Systems GI sx, sedation, flu-like sx Mental Status Exam Mental Status Exam Patient Appearance: Fatigued Patient Orientation: Person, Place, Time and Situation Level of Consciousness: Alert Patient Behavior: Talkative and Good Eye Contact Mood Description: Depressed Affect Description: Flat Patient Cognition Impaired: No Ability to Follow Directions: Good Speech Pattern: Spontaneous Speech Memory Description: Episodic Impaired Hallucinations: None Delusions: Not Present Thought Process: Rumination Thought Content: positive for Circumstantial and positive for Perseveration Depressive Symptoms: Increased Fatigue and Loss of Energy Judgement: Fair Diagnostics Vital Signs (24Hr): Vital Signs - 24 hr 09/20/24 19:56 09/21/24 08:00 Temperature 97.7 F 97.8 F Pulse Rate 79 74 Respiratory Rate 15 16 Blood Pressure 106/59 L 130/67 Pulse Oximetry 96 95 Oxygen Delivery Method Room Air Labs Labs: Laboratory Results - last 48 hr 09/19/24 14:28 POC Glucose 105 Medications Medications Current Medications Acetaminophen (Acetaminophen 325 Mg Tablet) 975 mg PO Q6H PRN PRN Reason: Headache/Pain, Scale 1-10 Al Hydroxide/Mg Hydroxide (Magnesium Hydrox/Alum Hydrox 30 Ml Oral.Susp) 30 ml PO Q6H PRN PRN Reason: Heartburn/Nausea Last Admin: 09/12/24 10:53 Dose: 30 ml Alprazolam (Alprazolam 0.5 Mg Tablet) 2 mg PO TID COUNT INCLUDES THE [facility] Last Admin: 09/21/24 08:32 Dose: 2 mg Escitalopram Oxalate (Escitalopram Oxalate 10 Mg Tablet) 10 mg PO DAILY COUNT INCLUDES THE [facility] Last Admin: 09/21/24 08:32 Dose: 10 mg Hydroxyzine HCl (Hydroxyzine Hcl 25 Mg Tablet) 25 mg PO Q6H PRN PRN Reason: mild anxiety Lamotrigine (Lamotrigine 100 Mg Tablet) 200 mg PO BID COUNT INCLUDES THE [facility] Last Admin: 09/21/24 08:32 Dose: 200 mg Loperamide HCl (Loperamide Hcl 2 Mg Capsule) 2 mg PO Q6H PRN PRN Reason: Diarrhea Last Admin: 09/19/24 18:22 Dose: 2 mg Magnesium Hydroxide (Milk Of Magnesia 30 Ml Oral.Susp) 30 ml PO DAILY PRN PRN Reason: Constipation Methadone HCl (Methadone Hcl 20 Mg/2 Ml Oral.Conc) 100 mg PO DAILY@0800 COUNT INCLUDES THE [facility] Last Admin: 09/21/24 07:48 Dose: 100 mg Nicotine (Nicotine 21 Mg Patch.Td24) 21 mg TRANSDERMA DAILY COUNT INCLUDES THE [facility] Last Admin: 09/21/24 08:56 Dose: Not Given Ondansetron HCl (Ondansetron Odt 4 Mg Tab.Rapdis) 4 mg TRANSLINGU Q8H PRN PRN Reason: Nausea and Vomiting Last Admin: 09/21/24 11:31 Dose: 4 mg Pregabalin (Pregabalin 50 Mg Capsule) 50 mg PO 0900,1500 COUNT INCLUDES THE [facility] Last Admin: 09/21/24 08:32 Dose: 50 mg Valacyclovir HCl (Valacyclovir Hcl 1,000 Mg Tablet) 1,000 mg PO DAILY COUNT INCLUDES THE [facility] Last Admin: 09/21/24 08:32 Dose: 1,000 mg Venlafaxine HCl 37.5 mg/ (Venlafaxine HCl 75 mg) 112.5 mg PO DAILY COUNT INCLUDES THE [facility] Last Admin: 09/21/24 08:31 Dose: 112.5 mg Allergies Allergies Allergy/AdvReac Type Severity Reaction Status Date / Time bupropion (From Wellbutrin) Allergy Severe Hives Verified 09/11/24 13:51 phenobarbital Allergy Severe Hives Verified 09/11/24 13:51 risperidone (From Risperdal) Allergy Severe Hives Verified 09/11/24 13:51 Sulfa (Sulfonamide Allergy Severe Hives Verified 09/11/24 13:51 Antibiotics) Assessment & Plan Assessment & Plan (1) Recurrent major depression: Status: Acute Code(s): F33.9 - Major depressive disorder, recurrent, unspecified (2) Opioid dependence on maintenance agonist therapy, no symptoms: Status: Acute Code(s): F11.20 - Opioid dependence, uncomplicated (3) Benzodiazepine dependence: Status: Acute Code(s): F13.20 - Sedative, hypnotic or anxiolytic dependence, uncomplicated Plan Admit CV, 15 minute checks Collateral Contact Diagnostics as needed ?neuro eval Encourage full milieu Continue current regime at this time Discharge planning 09/13 CAT Brain Continue current tx at this time, await results of CAT 09/14 Cross taper to decrease Venlafaxine and titrate Escitalopram for trial 09/16 Continue tx 09/17: Patient states that she is ?not so good. She notes that she has not been feeling great since she started taking venlafaxine. She notes adverse reactions of the medication including passing out while sitting at a gas station in her parked vehicle and losing sensation from her waist down, over a week ago; those symptoms completely resolved. She reports severe anxiety and depression. She endorses SI with a plan to take a couple of bottle of pills and not wake up. She currently denies HI/AH/VH. Continue current treatment regimen. 09/18: As planned, increase Lexapro to 10 mg. Continue Venlafaxine tapering (decreased to 112.5 from 150 mg this week). 09/19: Some of patient's symptoms are chronic and she has complained of same before. Combination of multiple sedating medications and maybe lowering dose of Effexor. Will attempt decrease in BZD dosing. Per [facility] patient has been on high dose BZD for a long time (Klonopin 2 mg QID a few months ago and switched to Xanax 2 mg TID by her OP treatment team.) Continue monitor cross taper. 5 min checks. 09/20: Decrease Lyrica to 50 mg BID. Consider slow taper of Xanax. Continue cross taper Effexor to Lexapro per primary team. 09/21: DC Nicotine Patch DC Lexapro-pt feels she is not able to tolerate this Increase Effexor XR to 150 mg daily (Base dosing before cross tapering) SARS/FLU/RSV testing Reason for continued inpatient stay Substantial Risk for: rapid decompensation Time Spent With Patient Time: Total time managing care of this patient today ____ minutes.
[2024-09-21 18:15] LABS: Resp Syncy Virus RNA Qual PCR NEGATIVE (Negative); SARS COV2 PCR INHOUSE NEGATIVE (Negative)
[2024-09-21 20:00] VITALS: BP 123/60; PULSE 85; RESP 16; TEMP 36.4; O2SAT 93
[2024-09-22 07:58] LABS: MANUAL DIFF FLAG NO
[2024-09-22 08:00] VITALS: BP 109/59; PULSE 66; RESP 18; TEMP 36.8; O2SAT 97
[2024-09-22 08:00] LABS: Hematocrit 36.0 % (37.0-47.0); Hemoglobin 11.7 g/dl (12.0-16.0); Imm Gran Abs Auto 0.04 X10*3/uL (0.00-0.03); Imm Gran Pct Auto 0.8 % (0.0-0.4); Lymphocytes Absolute Auto 2.0 X10*3/uL (1.2-4.9); Mean Corpuscular HGB Conc 32.5 g/dl (31.0-35.0); Mean Corpuscular Hemoglobin 29.5 pg (27.0-33.0); Mean Corpuscular Volume 90.9 fL (80.0-98.0); NRBC Abs Auto 0.000 X10*3/uL (0.0-0.012); NRBC Pct Auto 0.0 /100WBC (0.0-0.2); Platelet Count 212 X10*3/uL (160-400); Red Blood Count 3.96 X10*6/uL (4.20-5.50); White Blood Count 5.1 X10*3/uL (4.8-10.8)
[2024-09-22] MEDS: methADONE HCl 20 MG/2 ML ORAL.CONC 100 MG PO (08:05)
[2024-09-22 08:16] LABS: Alanine Aminotransferase 26 U/L (0-31); Albumin Level 4.0 g/dL (3.5-5.0); Alkaline Phosphatase 72 U/L (39-117); Anion Gap 13 (12-20); Aspartate Amino Transferase 32 U/L (5-31); Blood Urea Nitrogen 11 mg/dL (9-16); Calcium 8.9 mg/dL (8.4-10.2); Carbon Dioxide 34 mmol/L (22-29); Chloride 100 mmol/L (96-108); Estimated Glomerular Filt Rate > 60; Potassium 4.3 mmol/L (3.3-5.1); Sodium 143 mmol/L (135-145); Total Protein 6.4 g/dL (6.5-8.0)
[2024-09-22] MEDS: Venlafaxine HCl ER 150 MG CAP.ER.24H PO (09:18)
--- NOTE | 2024-09-22 11:29 | HO.PSYCHPN ---
Subjective Subjective Date of Service: 09/22/24 Reason For Visit: MDD,borderline personality disorder,opiate use d/o Subjective Notes: Conditional Voluntary Healthcare Proxy: No Guardianship: No Medical Problems Affecting Mental Status: No Interim History: Reports urinary incontinence. Repeat UA/UC suggested which she agrees with along with other labs Venlafaxine returned to 150 mg, Escitalopram discontinued. Tolerating this change thus far. Attending some increased milieu activites, not looking sedate. Does report flank pain. Medication Compliance: Yes Side effects from medications: No Attending Groups: Intermittent Review of Systems Acute medical concerns: No Review of Systems Review of Systems flank pain constipation Mental Status Exam Mental Status Exam Patient Appearance: Appropriate Patient Orientation: Person, Place, Time and Situation Level of Consciousness: Alert Patient Behavior: Talkative and Good Eye Contact Mood Description: Depressed Affect Description: Flat Patient Cognition Impaired: No Ability to Follow Directions: Good Speech Pattern: Spontaneous Speech Memory Description: Episodic Impaired Hallucinations: None Delusions: Not Present Thought Process: Rumination Thought Content: positive for Circumstantial and positive for Perseveration Depressive Symptoms: Loss of Energy Judgement: Fair Diagnostics Vital Signs (24Hr): Vital Signs - 24 hr 09/21/24 20:00 09/22/24 08:00 Temperature 97.5 F 98.2 F Pulse Rate 85 66 Respiratory Rate 16 18 Blood Pressure 123/60 109/59 L Pulse Oximetry 93 97 Oxygen Delivery Method Room Air Room Air Labs 09/22/24 07:47 09/22/24 07:47 Labs: Laboratory Results - last 48 hr 09/21/24 09/22/24 17:25 07:47 WBC 5.1 RBC 3.96 L Hgb 11.7 L Hct 36.0 L MCV 90.9 MCH 29.5 MCHC 32.5 RDW 13.5 Plt Count 212 MPV 9.0 L Immature Gran % (Auto) 0.8 H Neut % (Auto) 52.7 Lymph % (Auto) 38.5 [place] % (Auto) 6.0 Eos % (Auto) 1.0 Baso % (Auto) 1.0 Lymph # (Auto) 2.0 [place] # (Auto) 0.3 Eos # (Auto) 0.1 Baso # (Auto) 0.1 Abs Immat Gran (auto) 0.04 H Absolute Neuts (auto) 2.7 Absolute Nucleated RBC 0.000 Nucleated RBC % (auto) 0.0 Sodium 143 Potassium 4.3 Chloride 100 Carbon Dioxide 34 H Anion Gap 13 BUN 11 Creatinine 0.74 Estim Creat Clear Calc TNP Estimated GFR > 60 Random Glucose 76 Calcium 8.9 Total Bilirubin 0.2 AST 32 H ALT 26 Alkaline Phosphatase 72 Total Protein 6.4 L Albumin 4.0 Influenza Type A (PCR) NEGATIVE Influenza Type B (PCR) NEGATIVE RSV RNA Qual (PCR) NEGATIVE SARS-CoV-2 RNA (RT-PCR) NEGATIVE Medications Medications Current Medications Acetaminophen (Acetaminophen 325 Mg Tablet) 975 mg PO Q6H PRN PRN Reason: Headache/Pain, Scale 1-10 Al Hydroxide/Mg Hydroxide (Magnesium Hydrox/Alum Hydrox 30 Ml Oral.Susp) 30 ml PO Q6H PRN PRN Reason: Heartburn/Nausea Last Admin: 09/12/24 10:53 Dose: 30 ml Alprazolam (Alprazolam 0.5 Mg Tablet) 2 mg PO TID [facility] Last Admin: 09/22/24 09:17 Dose: 2 mg Hydroxyzine HCl (Hydroxyzine Hcl 25 Mg Tablet) 25 mg PO Q6H PRN PRN Reason: mild anxiety Lamotrigine (Lamotrigine 100 Mg Tablet) 200 mg PO BID [facility] Last Admin: 09/22/24 09:18 Dose: 200 mg Loperamide HCl (Loperamide Hcl 2 Mg Capsule) 2 mg PO Q6H PRN PRN Reason: Diarrhea Last Admin: 09/19/24 18:22 Dose: 2 mg Magnesium Hydroxide (Milk Of Magnesia 30 Ml Oral.Susp) 30 ml PO DAILY PRN PRN Reason: Constipation Methadone HCl (Methadone Hcl 20 Mg/2 Ml Oral.Conc) 100 mg PO DAILY@0800 [facility] Last Admin: 09/22/24 08:05 Dose: 100 mg Ondansetron HCl (Ondansetron Odt 4 Mg Tab.Rapdis) 4 mg TRANSLINGU Q8H PRN PRN Reason: Nausea and Vomiting Last Admin: 09/21/24 11:31 Dose: 4 mg Pregabalin (Pregabalin 50 Mg Capsule) 50 mg PO 0900,1500 [facility] Last Admin: 09/22/24 09:18 Dose: 50 mg Valacyclovir HCl (Valacyclovir Hcl 1,000 Mg Tablet) 1,000 mg PO DAILY [facility] Last Admin: 09/22/24 09:18 Dose: 1,000 mg Venlafaxine HCl (Venlafaxine Hcl Er 150 Mg Cap.Er.24h) 150 mg PO DAILY [facility] Last Admin: 09/22/24 09:18 Dose: 150 mg Allergies Allergies Allergy/AdvReac Type Severity Reaction Status Date / Time bupropion (From Wellbutrin) Allergy Severe Hives Verified 09/11/24 13:51 phenobarbital Allergy Severe Hives Verified 09/11/24 13:51 risperidone (From Risperdal) Allergy Severe Hives Verified 09/11/24 13:51 Sulfa (Sulfonamide Allergy Severe Hives Verified 09/11/24 13:51 Antibiotics) Assessment & Plan Assessment & Plan (1) Recurrent major depression: Status: Acute Code(s): F33.9 - Major depressive disorder, recurrent, unspecified (2) Opioid dependence on maintenance agonist therapy, no symptoms: Status: Acute Code(s): F11.20 - Opioid dependence, uncomplicated (3) Benzodiazepine dependence: Status: Acute Code(s): F13.20 - Sedative, hypnotic or anxiolytic dependence, uncomplicated Plan Admit CV, 15 minute checks Collateral Contact Diagnostics as needed ?neuro eval Encourage full milieu Continue current regime at this time Discharge planning 09/13 CAT Brain Continue current tx at this time, await results of CAT 09/14 Cross taper to decrease Venlafaxine and titrate Escitalopram for trial 09/16 Continue tx 09/17: Patient states that she is ?not so good. She notes that she has not been feeling great since she started taking venlafaxine. She notes adverse reactions of the medication including passing out while sitting at a gas station in her parked vehicle and losing sensation from her waist down, over a week ago; those symptoms completely resolved. She reports severe anxiety and depression. She endorses SI with a plan to take a couple of bottle of pills and not wake up. She currently denies HI/AH/VH. Continue current treatment regimen. 09/18: As planned, increase Lexapro to 10 mg. Continue Venlafaxine tapering (decreased to 112.5 from 150 mg this week). 09/19: Some of patient's symptoms are chronic and she has complained of same before. Combination of multiple sedating medications and maybe lowering dose of Effexor. Will attempt decrease in BZD dosing. Per [facility] patient has been on high dose BZD for a long time (Klonopin 2 mg QID a few months ago and switched to Xanax 2 mg TID by her OP treatment team.) Continue monitor cross taper. 5 min checks. 09/20: Decrease Lyrica to 50 mg BID. Consider slow taper of Xanax. Continue cross taper Effexor to Lexapro per primary team. 09/21: DC Nicotine Patch DC Lexapro-pt feels she is not able to tolerate this Increase Effexor XR to 150 mg daily (Base dosing before cross tapering) SARS/FLU/RSV testing 09/22: Continue regime. Reason for continued inpatient stay Substantial Risk for: rapid decompensation Time Spent With Patient Time: Total time managing care of this patient today ____ minutes.
[2024-09-22 20:00] VITALS: BP 116/56; PULSE 80; RESP 16; TEMP 36.4; O2SAT 96
[2024-09-23] MEDS: methADONE HCl 20 MG/2 ML ORAL.CONC 100 MG PO (07:53)
[2024-09-23 08:00] VITALS: BP 149/66; PULSE 65; TEMP 36.4; O2SAT 98
--- NOTE | 2024-09-23 14:22 | HO.PSYCHPN ---
Subjective Subjective Reason For Visit: MDD,borderline personality disorder,opiate use d/o Diagnostics Vital Signs (24Hr): Vital Signs - 24 hr 09/22/24 20:00 09/23/24 08:00 Temperature 97.5 F 97.5 F Pulse Rate 80 65 Respiratory Rate 16 Blood Pressure 116/56 L 149/66 H Pulse Oximetry 96 98 Oxygen Delivery Method Room Air Room Air Labs 09/22/24 07:47 09/22/24 07:47 Labs: Laboratory Results - last 48 hr 09/21/24 09/22/24 17:25 07:47 WBC 5.1 RBC 3.96 L Hgb 11.7 L Hct 36.0 L MCV 90.9 MCH 29.5 MCHC 32.5 RDW 13.5 Plt Count 212 MPV 9.0 L Immature Gran % (Auto) 0.8 H Neut % (Auto) 52.7 Lymph % (Auto) 38.5 [place] % (Auto) 6.0 Eos % (Auto) 1.0 Baso % (Auto) 1.0 Lymph # (Auto) 2.0 [place] # (Auto) 0.3 Eos # (Auto) 0.1 Baso # (Auto) 0.1 Abs Immat Gran (auto) 0.04 H Absolute Neuts (auto) 2.7 Absolute Nucleated RBC 0.000 Nucleated RBC % (auto) 0.0 Sodium 143 Potassium 4.3 Chloride 100 Carbon Dioxide 34 H Anion Gap 13 BUN 11 Creatinine 0.74 Estim Creat Clear Calc TNP Estimated GFR > 60 Random Glucose 76 Calcium 8.9 Total Bilirubin 0.2 AST 32 H ALT 26 Alkaline Phosphatase 72 Total Protein 6.4 L Albumin 4.0 Influenza Type A (PCR) NEGATIVE Influenza Type B (PCR) NEGATIVE RSV RNA Qual (PCR) NEGATIVE SARS-CoV-2 RNA (RT-PCR) NEGATIVE Medications Medications Current Medications Acetaminophen (Acetaminophen 325 Mg Tablet) 975 mg PO Q6H PRN PRN Reason: Headache/Pain, Scale 1-10 Al Hydroxide/Mg Hydroxide (Magnesium Hydrox/Alum Hydrox 30 Ml Oral.Susp) 30 ml PO Q6H PRN PRN Reason: Heartburn/Nausea Last Admin: 09/12/24 10:53 Dose: 30 ml Alprazolam (Alprazolam 0.5 Mg Tablet) 2 mg PO TID [facility] Last Admin: 09/23/24 14:03 Dose: 2 mg Hydroxyzine HCl (Hydroxyzine Hcl 25 Mg Tablet) 25 mg PO Q6H PRN PRN Reason: mild anxiety Lamotrigine (Lamotrigine 100 Mg Tablet) 200 mg PO BID [facility] Last Admin: 09/23/24 09:03 Dose: 200 mg Loperamide HCl (Loperamide Hcl 2 Mg Capsule) 2 mg PO Q6H PRN PRN Reason: Diarrhea Last Admin: 09/19/24 18:22 Dose: 2 mg Magnesium Hydroxide (Milk Of Magnesia 30 Ml Oral.Susp) 30 ml PO DAILY PRN PRN Reason: Constipation Methadone HCl (Methadone Hcl 20 Mg/2 Ml Oral.Conc) 100 mg PO DAILY@0800 [facility] Last Admin: 09/23/24 07:53 Dose: 100 mg Ondansetron HCl (Ondansetron Odt 4 Mg Tab.Rapdis) 4 mg TRANSLINGU Q8H PRN PRN Reason: Nausea and Vomiting Last Admin: 09/22/24 20:21 Dose: 4 mg Pregabalin (Pregabalin 50 Mg Capsule) 50 mg PO 0900,1500 [facility] Last Admin: 09/23/24 14:04 Dose: 50 mg Valacyclovir HCl (Valacyclovir Hcl 1,000 Mg Tablet) 1,000 mg PO DAILY [facility] Last Admin: 09/23/24 09:03 Dose: 1,000 mg Venlafaxine HCl (Venlafaxine Hcl Er 150 Mg Cap.Er.24h) 150 mg PO DAILY [facility] Allergies Allergies Allergy/AdvReac Type Severity Reaction Status Date / Time bupropion (From Wellbutrin) Allergy Severe Hives Verified 09/11/24 13:51 phenobarbital Allergy Severe Hives Verified 09/11/24 13:51 risperidone (From Risperdal) Allergy Severe Hives Verified 09/11/24 13:51 Sulfa (Sulfonamide Allergy Severe Hives Verified 09/11/24 13:51 Antibiotics) Assessment & Plan Assessment & Plan (1) Recurrent major depression: Status: Acute Code(s): F33.9 - Major depressive disorder, recurrent, unspecified (2) Opioid dependence on maintenance agonist therapy, no symptoms: Status: Acute Code(s): F11.20 - Opioid dependence, uncomplicated (3) Benzodiazepine dependence: Status: Acute Code(s): F13.20 - Sedative, hypnotic or anxiolytic dependence, uncomplicated Plan Admit CV, 15 minute checks Collateral Contact Diagnostics as needed ?neuro eval Encourage full milieu Continue current regime at this time Discharge planning 09/13 CAT Brain Continue current tx at this time, await results of CAT 09/14 Cross taper to decrease Venlafaxine and titrate Escitalopram for trial 09/16 Continue tx 09/17: Patient states that she is ?not so good. She notes that she has not been feeling great since she started taking venlafaxine. She notes adverse reactions of the medication including passing out while sitting at a gas station in her parked vehicle and losing sensation from her waist down, over a week ago; those symptoms completely resolved. She reports severe anxiety and depression. She endorses SI with a plan to take a couple of bottle of pills and not wake up. She currently denies HI/AH/VH. Continue current treatment regimen. 09/18: As planned, increase Lexapro to 10 mg. Continue Venlafaxine tapering (decreased to 112.5 from 150 mg this week). 09/19: Some of patient's symptoms are chronic and she has complained of same before. Combination of multiple sedating medications and maybe lowering dose of Effexor. Will attempt decrease in BZD dosing. Per [facility] patient has been on high dose BZD for a long time (Klonopin 2 mg QID a few months ago and switched to Xanax 2 mg TID by her OP treatment team.) Continue monitor cross taper. 5 min checks. 09/20: Decrease Lyrica to 50 mg BID. Consider slow taper of Xanax. Continue cross taper Effexor to Lexapro per primary team. 09/21: DC Nicotine Patch DC Lexapro-pt feels she is not able to tolerate this Increase Effexor XR to 150 mg daily (Base dosing before cross tapering) SARS/FLU/RSV testing Time Spent With Patient Time: Total time managing care of this patient today ____ minutes.
--- NOTE | 2024-09-23 14:22 | HO.PSYCHPN ---
Subjective Subjective Date of Service: 09/23/24 Reason For Visit: MDD,borderline personality disorder,opiate use d/o Subjective Notes: Conditional Voluntary Healthcare Proxy: No Guardianship: No Medical Problems Affecting Mental Status: No Interim History: Review of labs with pt. Agrees to see the hospitalist for flank pain, however, refused this evening to see her. Will continue Venlafaxine taper and begin low dose Fluoxetine this week. Medication Compliance: Yes Side effects from medications: No Attending Groups: Intermittent Review of Systems Acute medical concerns: Yes flank pain Medical Review of Systems: unchanged Review of Systems Review of Systems flank pain Mental Status Exam Mental Status Exam Patient Appearance: Appropriate Patient Orientation: Person, Place, Time and Situation Level of Consciousness: Alert Patient Behavior: Talkative and Good Eye Contact Mood Description: Depressed Affect Description: Flat Patient Cognition Impaired: No Ability to Follow Directions: Good Speech Pattern: Spontaneous Speech Memory Description: Episodic Impaired Hallucinations: None Delusions: Not Present Thought Process: Rumination Thought Content: positive for Circumstantial and positive for Perseveration Depressive Symptoms: Loss of Energy Judgement: Fair Diagnostics Vital Signs (24Hr): Vital Signs - 24 hr 09/22/24 20:00 09/23/24 08:00 Temperature 97.5 F 97.5 F Pulse Rate 80 65 Respiratory Rate 16 Blood Pressure 116/56 L 149/66 H Pulse Oximetry 96 98 Oxygen Delivery Method Room Air Room Air Labs 09/22/24 07:47 09/22/24 07:47 Labs: Laboratory Results - last 48 hr 09/21/24 09/22/24 17:25 07:47 WBC 5.1 RBC 3.96 L Hgb 11.7 L Hct 36.0 L MCV 90.9 MCH 29.5 MCHC 32.5 RDW 13.5 Plt Count 212 MPV 9.0 L Immature Gran % (Auto) 0.8 H Neut % (Auto) 52.7 Lymph % (Auto) 38.5 [place] % (Auto) 6.0 Eos % (Auto) 1.0 Baso % (Auto) 1.0 Lymph # (Auto) 2.0 [place] # (Auto) 0.3 Eos # (Auto) 0.1 Baso # (Auto) 0.1 Abs Immat Gran (auto) 0.04 H Absolute Neuts (auto) 2.7 Absolute Nucleated RBC 0.000 Nucleated RBC % (auto) 0.0 Sodium 143 Potassium 4.3 Chloride 100 Carbon Dioxide 34 H Anion Gap 13 BUN 11 Creatinine 0.74 Estim Creat Clear Calc TNP Estimated GFR > 60 Random Glucose 76 Calcium 8.9 Total Bilirubin 0.2 AST 32 H ALT 26 Alkaline Phosphatase 72 Total Protein 6.4 L Albumin 4.0 Influenza Type A (PCR) NEGATIVE Influenza Type B (PCR) NEGATIVE RSV RNA Qual (PCR) NEGATIVE SARS-CoV-2 RNA (RT-PCR) NEGATIVE Medications Medications Current Medications Acetaminophen (Acetaminophen 325 Mg Tablet) 975 mg PO Q6H PRN PRN Reason: Headache/Pain, Scale 1-10 Al Hydroxide/Mg Hydroxide (Magnesium Hydrox/Alum Hydrox 30 Ml Oral.Susp) 30 ml PO Q6H PRN PRN Reason: Heartburn/Nausea Last Admin: 09/12/24 10:53 Dose: 30 ml Alprazolam (Alprazolam 0.5 Mg Tablet) 2 mg PO TID [facility] Last Admin: 09/23/24 14:03 Dose: 2 mg Hydroxyzine HCl (Hydroxyzine Hcl 25 Mg Tablet) 25 mg PO Q6H PRN PRN Reason: mild anxiety Lamotrigine (Lamotrigine 100 Mg Tablet) 200 mg PO BID [facility] Last Admin: 09/23/24 09:03 Dose: 200 mg Loperamide HCl (Loperamide Hcl 2 Mg Capsule) 2 mg PO Q6H PRN PRN Reason: Diarrhea Last Admin: 09/19/24 18:22 Dose: 2 mg Magnesium Hydroxide (Milk Of Magnesia 30 Ml Oral.Susp) 30 ml PO DAILY PRN PRN Reason: Constipation Methadone HCl (Methadone Hcl 20 Mg/2 Ml Oral.Conc) 100 mg PO DAILY@0800 [facility] Last Admin: 09/23/24 07:53 Dose: 100 mg Ondansetron HCl (Ondansetron Odt 4 Mg Tab.Rapdis) 4 mg TRANSLINGU Q8H PRN PRN Reason: Nausea and Vomiting Last Admin: 09/22/24 20:21 Dose: 4 mg Pregabalin (Pregabalin 50 Mg Capsule) 50 mg PO 0900,1500 [facility] Last Admin: 09/23/24 14:04 Dose: 50 mg Valacyclovir HCl (Valacyclovir Hcl 1,000 Mg Tablet) 1,000 mg PO DAILY [facility] Last Admin: 09/23/24 09:03 Dose: 1,000 mg Venlafaxine HCl (Venlafaxine Hcl Er 150 Mg Cap.Er.24h) 150 mg PO DAILY [facility] Allergies Allergies Allergy/AdvReac Type Severity Reaction Status Date / Time bupropion (From Wellbutrin) Allergy Severe Hives Verified 09/11/24 13:51 phenobarbital Allergy Severe Hives Verified 09/11/24 13:51 risperidone (From Risperdal) Allergy Severe Hives Verified 09/11/24 13:51 Sulfa (Sulfonamide Allergy Severe Hives Verified 09/11/24 13:51 Antibiotics) Assessment & Plan Assessment & Plan (1) Recurrent major depression: Status: Acute Code(s): F33.9 - Major depressive disorder, recurrent, unspecified (2) Opioid dependence on maintenance agonist therapy, no symptoms: Status: Acute Code(s): F11.20 - Opioid dependence, uncomplicated (3) Benzodiazepine dependence: Status: Acute Code(s): F13.20 - Sedative, hypnotic or anxiolytic dependence, uncomplicated Plan Admit CV, 15 minute checks Collateral Contact Diagnostics as needed ?neuro eval Encourage full milieu Continue current regime at this time Discharge planning 09/13 CAT Brain Continue current tx at this time, await results of CAT 09/14 Cross taper to decrease Venlafaxine and titrate Escitalopram for trial 09/16 Continue tx 09/17: Patient states that she is ?not so good. She notes that she has not been feeling great since she started taking venlafaxine. She notes adverse reactions of the medication including passing out while sitting at a gas station in her parked vehicle and losing sensation from her waist down, over a week ago; those symptoms completely resolved. She reports severe anxiety and depression. She endorses SI with a plan to take a couple of bottle of pills and not wake up. She currently denies HI/AH/VH. Continue current treatment regimen. 09/18: As planned, increase Lexapro to 10 mg. Continue Venlafaxine tapering (decreased to 112.5 from 150 mg this week). 09/19: Some of patient's symptoms are chronic and she has complained of same before. Combination of multiple sedating medications and maybe lowering dose of Effexor. Will attempt decrease in BZD dosing. Per [facility] patient has been on high dose BZD for a long time (Klonopin 2 mg QID a few months ago and switched to Xanax 2 mg TID by her OP treatment team.) Continue monitor cross taper. 5 min checks. 09/20: Decrease Lyrica to 50 mg BID. Consider slow taper of Xanax. Continue cross taper Effexor to Lexapro per primary team. 09/21: DC Nicotine Patch DC Lexapro-pt feels she is not able to tolerate this Increase Effexor XR to 150 mg daily (Base dosing before cross tapering) SARS/FLU/RSV testing 09/23: Decrease Venlafaxine to 75 mg daily Fluoxetine 10 mg daily Reason for continued inpatient stay Substantial Risk for: rapid decompensation Time Spent With Patient Time: Total time managing care of this patient today ____ minutes.
[2024-09-23 19:51] VITALS: BP 126/61; PULSE 72; RESP 16; TEMP 36.6; O2SAT 98
--- NOTE | 2024-09-23 22:36 | PM.EVENT ---
Event Note Date of Service: 09/23/24 Event Note: consult placed for ?kidney infection . pt is complaining of bilateral flank pain. declined tylenol and pyridium from nurse. had urinary complaints on admission on 09/12 with negative UA. repeat UA ordered, not yet complete. declined consult at this time, will follow UA results for further recommendations. vitals are stable. consider renal US if UA negative. Time Spent With Patient Time: Total time managing care of this patient today ____ minutes.
[2024-09-24] MEDS: methADONE HCl 20 MG/2 ML ORAL.CONC 100 MG PO (07:45)
[2024-09-24 08:00] VITALS: BP 127/67; PULSE 65; TEMP 36.4; O2SAT 95
[2024-09-24] MEDS: FLUoxetine HCl Oral Solution 20 MG/5 ML SOLUTION 10 MG PO (08:44)
[2024-09-24] MEDS: Venlafaxine HCl ER 75 MG CAP.ER.24H PO (08:44)
--- NOTE | 2024-09-24 11:56 | P.PNPSI_ITS ---
Subjective Subjective Date of Service: 09/24/24 Reason For Visit: MDD,borderline personality disorder,opiate use d/o Subjective Notes: Conditional Voluntary Healthcare Proxy: No Guardianship: No Interim History: UA 6-10 WBC's- Given nitrofurantoin 100 mg bid for 5 days. UC contaminated Hospitalist suggested renal ultrasound if UA is negative so this was ordered Medication Compliance: Yes Side effects from medications: No Attending Groups: Intermittent Review of Systems flank pain, pt refused to meet with the hospitalist on 09/23. Medical Review of Systems: unchanged Review of Systems Review of Systems flank pain Mental Status Exam Mental Status Exam Patient Appearance: Appropriate Patient Orientation: Person, Place, Time and Situation Level of Consciousness: Alert Patient Behavior: Talkative and Good Eye Contact Mood Description: Depressed Affect Description: Flat Patient Cognition Impaired: No Ability to Follow Directions: Good Speech Pattern: Spontaneous Speech Memory Description: Episodic Impaired Hallucinations: None Delusions: Not Present Thought Process: Rumination Thought Content: positive for Circumstantial and positive for Perseveration Depressive Symptoms: Loss of Energy Judgement: Fair Diagnostics Vital Signs (24Hr): Vital Signs - 24 hr 09/23/24 19:51 09/24/24 08:00 Temperature 97.8 F 97.6 F Pulse Rate 72 65 Respiratory Rate 16 Blood Pressure 126/61 127/67 Pulse Oximetry 98 95 Oxygen Delivery Method Room Air Room Air Labs 09/22/24 07:47 09/22/24 07:47 Medications Medications Current Medications Acetaminophen (Acetaminophen 325 Mg Tablet) 975 mg PO Q6H PRN PRN Reason: Headache/Pain, Scale 1-10 Al Hydroxide/Mg Hydroxide (Magnesium Hydrox/Alum Hydrox 30 Ml Oral.Susp) 30 ml PO Q6H PRN PRN Reason: Heartburn/Nausea Last Admin: 09/12/24 10:53 Dose: 30 ml Alprazolam (Alprazolam 0.5 Mg Tablet) 2 mg PO TID [facility] Last Admin: 09/24/24 08:44 Dose: 2 mg Fluoxetine HCl (Fluoxetine Hcl Oral Solution 20 Mg/5 Ml Solution) 10 mg PO DAILY [facility] Last Admin: 09/24/24 08:44 Dose: 10 mg Hydroxyzine HCl (Hydroxyzine Hcl 25 Mg Tablet) 25 mg PO Q6H PRN PRN Reason: mild anxiety Lamotrigine (Lamotrigine 100 Mg Tablet) 200 mg PO BID [facility] Last Admin: 09/24/24 08:44 Dose: 200 mg Loperamide HCl (Loperamide Hcl 2 Mg Capsule) 2 mg PO Q6H PRN PRN Reason: Diarrhea Last Admin: 09/19/24 18:22 Dose: 2 mg Magnesium Hydroxide (Milk Of Magnesia 30 Ml Oral.Susp) 30 ml PO DAILY PRN PRN Reason: Constipation Methadone HCl (Methadone Hcl 20 Mg/2 Ml Oral.Conc) 100 mg PO DAILY@0800 [facility] Last Admin: 09/24/24 07:45 Dose: 100 mg Ondansetron HCl (Ondansetron Odt 4 Mg Tab.Rapdis) 4 mg TRANSLINGU Q8H PRN PRN Reason: Nausea and Vomiting Last Admin: 09/22/24 20:21 Dose: 4 mg Phenazopyridine HCl (Phenazopyridine Hcl 100 Mg Tablet) 100 mg PO BIDWM PRN PRN Reason: urinary pain Stop: 09/25/24 15:38 Pregabalin (Pregabalin 50 Mg Capsule) 50 mg PO 0900,1500 [facility] Last Admin: 09/24/24 08:45 Dose: 50 mg Valacyclovir HCl (Valacyclovir Hcl 1,000 Mg Tablet) 1,000 mg PO DAILY [facility] Last Admin: 09/24/24 08:45 Dose: 1,000 mg Venlafaxine HCl (Venlafaxine Hcl Er 75 Mg Cap.Er.24h) 75 mg PO DAILY [facility] Last Admin: 09/24/24 08:44 Dose: 75 mg Allergies Allergies Allergy/AdvReac Type Severity Reaction Status Date / Time bupropion (From Wellbutrin) Allergy Severe Hives Verified 09/11/24 13:51 phenobarbital Allergy Severe Hives Verified 09/11/24 13:51 risperidone (From Risperdal) Allergy Severe Hives Verified 09/11/24 13:51 Sulfa (Sulfonamide Allergy Severe Hives Verified 09/11/24 13:51 Antibiotics) Assessment & Plan Assessment & Plan (1) Recurrent major depression: Status: Acute Code(s): F33.9 - Major depressive disorder, recurrent, unspecified (2) Opioid dependence on maintenance agonist therapy, no symptoms: Status: Acute Code(s): F11.20 - Opioid dependence, uncomplicated (3) Benzodiazepine dependence: Status: Acute Code(s): F13.20 - Sedative, hypnotic or anxiolytic dependence, uncomplicated Plan Admit CV, 15 minute checks Collateral Contact Diagnostics as needed ?neuro eval Encourage full milieu Continue current regime at this time Discharge planning 09/13 CAT Brain Continue current tx at this time, await results of CAT 09/14 Cross taper to decrease Venlafaxine and titrate Escitalopram for trial 09/16 Continue tx 09/17: Patient states that she is ?not so good. She notes that she has not been feeling great since she started taking venlafaxine. She notes adverse reactions of the medication including passing out while sitting at a gas station in her parked vehicle and losing sensation from her waist down, over a week ago; those symptoms completely resolved. She reports severe anxiety and depression. She endorses SI with a plan to take a couple of bottle of pills and not wake up. She currently denies HI/AH/VH. Continue current treatment regimen. 09/18: As planned, increase Lexapro to 10 mg. Continue Venlafaxine tapering (decreased to 112.5 from 150 mg this week). 09/19: Some of patient's symptoms are chronic and she has complained of same before. Combination of multiple sedating medications and maybe lowering dose of Effexor. Will attempt decrease in BZD dosing. Per [facility] patient has been on high dose BZD for a long time (Klonopin 2 mg QID a few months ago and switched to Xanax 2 mg TID by her OP treatment team.) Continue monitor cross taper. 5 min checks. 09/20: Decrease Lyrica to 50 mg BID. Consider slow taper of Xanax. Continue cross taper Effexor to Lexapro per primary team. 09/21: DC Nicotine Patch DC Lexapro-pt feels she is not able to tolerate this Increase Effexor XR to 150 mg daily (Base dosing before cross tapering) SARS/FLU/RSV testing 09/24: Renal ultrasound per recommendation of hospitalist team who pt refused to meet with. Nitrofurantoin 100 mg bid for 5 days Venlafaxine 75 mg daily. To stop 09/26 Fluoxetine to increase to 20 mg on 09/27. Pt may need to see the hospitalist if flank pain increased, ?renal calculi Reason for continued inpatient stay Substantial Risk for: rapid decompensation Time Spent With Patient Time: Total time managing care of this patient today ____ minutes.
[2024-09-24 13:21] LABS: Appearance Urine Clear; Glucose Urine UA Negative (Negative); PH 5.5 (5.0-9.0); Specific Gravity - Urine 1.020 (1.005-1.025); UMIC TRIGGER UACC YES
[2024-09-24 13:24] LABS: UACC Culture Trigger YES
[2024-09-24 20:00] VITALS: BP 114/64; PULSE 83; RESP 16; TEMP 36.3; O2SAT 95
[2024-09-25] MEDS: methADONE HCl 20 MG/2 ML ORAL.CONC 100 MG PO (07:42)
[2024-09-25 08:00] VITALS: BP 160/75; PULSE 74; RESP 19; TEMP 36.8; O2SAT 96
--- NOTE | 2024-09-25 08:24 | HO.PSYCHPN ---
Subjective Subjective Date of Service: 09/25/24 Reason For Visit: MDD,borderline personality disorder,opiate use d/o Interim History: met with patient. Discussed with nursing . Patient appropriately asking around renal ultrasound result and urinalysis and antibiotic treatment. Renal ultrasound 09/24/2024 unremarkable and normal kidneys. Noted urinalysis from 09/22/2024 and 09/24/2024 largely inconclusive with likely contamination. That being said will start on nitrofurantoin and will continue same for 3 days and then discontinue as patient is complaining of UTI symptoms. Otherwise anxiety and depression are less. Tolerating transition from Effexor to Fluoxetine. Sleep okay. No SI or psychosis Medication Compliance: Yes Side effects from medications: No Attending Groups: Yes Review of Systems Acute medical concerns: No Review of Systems Review of Systems unremarkable Mental Status Exam Mental Status Exam Patient Appearance: Appropriate Patient Orientation: Person, Place, Time and Situation Level of Consciousness: Alert Patient Behavior: Talkative and Good Eye Contact Mood Description: Depressed ( less) and Anxious ( less) Affect Description: Flat Patient Cognition Impaired: No Ability to Follow Directions: Good Speech Pattern: Spontaneous Speech Memory Description: Episodic Impaired Hallucinations: None Delusions: Not Present Thought Process: Rumination Thought Content: positive for Circumstantial and positive for Perseveration Depressive Symptoms: Loss of Energy Judgement: Fair Diagnostics Vital Signs (24Hr): Vital Signs - 24 hr 09/24/24 20:00 09/25/24 08:00 Temperature 97.3 F 98.2 F Pulse Rate 83 74 Respiratory Rate 16 19 Blood Pressure 114/64 160/75 H Pulse Oximetry 95 96 Oxygen Delivery Method Room Air Room Air Labs 09/22/24 07:47 09/22/24 07:47 Labs: Laboratory Results - last 48 hr 09/24/24 13:00 Urine Color Yellow Urine Appearance Clear Urine pH 5.5 Ur Specific [place] 1.020 Urine Protein Negative Urine Glucose (UA) Negative Urine Ketones Negative Urine Blood Negative Urine Nitrite Negative Ur Leukocyte Esterase Small (1+) H Urine RBC 0-2 Urine WBC 6-10 H Ur Squamous Epith Cells 3-5 Urine Bacteria Trace Hyaline Casts 0-2 Medications Medications Current Medications Acetaminophen (Acetaminophen 325 Mg Tablet) 975 mg PO Q6H PRN PRN Reason: Headache/Pain, Scale 1-10 Al Hydroxide/Mg Hydroxide (Magnesium Hydrox/Alum Hydrox 30 Ml Oral.Susp) 30 ml PO Q6H PRN PRN Reason: Heartburn/Nausea Last Admin: 09/12/24 10:53 Dose: 30 ml Alprazolam (Alprazolam 0.5 Mg Tablet) 2 mg PO TID [facility] Last Admin: 09/24/24 20:37 Dose: 2 mg Fluoxetine HCl (Fluoxetine Hcl 10 Mg Capsule) 10 mg PO DAILY [facility] Stop: 09/26/24 10:00 Fluoxetine HCl (Fluoxetine Hcl 20 Mg Capsule) 20 mg PO DAILY [facility] Hydroxyzine HCl (Hydroxyzine Hcl 25 Mg Tablet) 25 mg PO Q6H PRN PRN Reason: mild anxiety Lamotrigine (Lamotrigine 100 Mg Tablet) 200 mg PO BID [facility] Last Admin: 09/24/24 20:37 Dose: 200 mg Loperamide HCl (Loperamide Hcl 2 Mg Capsule) 2 mg PO Q6H PRN PRN Reason: Diarrhea Last Admin: 09/19/24 18:22 Dose: 2 mg Magnesium Hydroxide (Milk Of Magnesia 30 Ml Oral.Susp) 30 ml PO DAILY PRN PRN Reason: Constipation Methadone HCl (Methadone Hcl 20 Mg/2 Ml Oral.Conc) 100 mg PO DAILY@0800 [facility] Last Admin: 09/25/24 07:42 Dose: 100 mg Nitrofurantoin Macrocrystals (Nitrofurantoin Macrocrystal 50 Mg Capsule) 100 mg PO Q12H [facility] Ondansetron HCl (Ondansetron Odt 4 Mg Tab.Rapdis) 4 mg TRANSLINGU Q8H PRN PRN Reason: Nausea and Vomiting Last Admin: 09/22/24 20:21 Dose: 4 mg Phenazopyridine HCl (Phenazopyridine Hcl 100 Mg Tablet) 100 mg PO BIDWM PRN PRN Reason: urinary pain Stop: 09/25/24 15:38 Last Admin: 09/24/24 13:46 Dose: 100 mg Pregabalin (Pregabalin 50 Mg Capsule) 50 mg PO 0900,1500 [facility] Last Admin: 09/24/24 14:11 Dose: 50 mg Valacyclovir HCl (Valacyclovir Hcl 1,000 Mg Tablet) 1,000 mg PO DAILY [facility] Last Admin: 09/24/24 08:45 Dose: 1,000 mg Venlafaxine HCl (Venlafaxine Hcl Er 75 Mg Cap.Er.24h) 75 mg PO DAILY [facility] Stop: 09/26/24 09:00 Last Admin: 09/24/24 08:44 Dose: 75 mg Allergies Allergies Allergy/AdvReac Type Severity Reaction Status Date / Time bupropion (From Wellbutrin) Allergy Severe Hives Verified 09/11/24 13:51 phenobarbital Allergy Severe Hives Verified 09/11/24 13:51 risperidone (From Risperdal) Allergy Severe Hives Verified 09/11/24 13:51 Sulfa (Sulfonamide Allergy Severe Hives Verified 09/11/24 13:51 Antibiotics) Assessment & Plan Assessment & Plan (1) Recurrent major depression: Status: Acute Code(s): F33.9 - Major depressive disorder, recurrent, unspecified (2) Opioid dependence on maintenance agonist therapy, no symptoms: Status: Acute Code(s): F11.20 - Opioid dependence, uncomplicated (3) Benzodiazepine dependence: Status: Acute Code(s): F13.20 - Sedative, hypnotic or anxiolytic dependence, uncomplicated Plan Admit CV, 15 minute checks Collateral Contact Diagnostics as needed ?neuro eval Encourage full milieu Continue current regime at this time Discharge planning 09/13 CAT Brain Continue current tx at this time, await results of CAT 09/14 Cross taper to decrease Venlafaxine and titrate Escitalopram for trial 09/16 Continue tx 09/17: Patient states that she is ?not so good. She notes that she has not been feeling great since she started taking venlafaxine. She notes adverse reactions of the medication including passing out while sitting at a gas station in her parked vehicle and losing sensation from her waist down, over a week ago; those symptoms completely resolved. She reports severe anxiety and depression. She endorses SI with a plan to take a couple of bottle of pills and not wake up. She currently denies HI/AH/VH. Continue current treatment regimen. 09/18: As planned, increase Lexapro to 10 mg. Continue Venlafaxine tapering (decreased to 112.5 from 150 mg this week). 09/19: Some of patient's symptoms are chronic and she has complained of same before. Combination of multiple sedating medications and maybe lowering dose of Effexor. Will attempt decrease in BZD dosing. Per [facility] patient has been on high dose BZD for a long time (Klonopin 2 mg QID a few months ago and switched to Xanax 2 mg TID by her OP treatment team.) Continue monitor cross taper. 5 min checks. 09/20: Decrease Lyrica to 50 mg BID. Consider slow taper of Xanax. Continue cross taper Effexor to Lexapro per primary team. 09/21: DC Nicotine Patch DC Lexapro-pt feels she is not able to tolerate this Increase Effexor XR to 150 mg daily (Base dosing before cross tapering) SARS/FLU/RSV testing 09/24: Renal ultrasound per recommendation of hospitalist team who pt refused to meet with. Nitrofurantoin 100 mg bid for 5 days Venlafaxine 75 mg daily. To stop 09/26 Fluoxetine to increase to 20 mg on 09/27. Pt may need to see the hospitalist if flank pain increased, ?renal calculi 09/25/2024: Transitioning from venlafaxine to fluoxetine. Renal ultrasound 09/24/2024 unremarkable and normal kidneys. Noted urinalysis from 09/22/2024 and 09/24/2024 largely inconclusive with likely contamination. That being said will start on nitrofurantoin and will continue same for 3 days and then discontinue as patient is complaining of UTI symptoms. Reason for continued inpatient stay Substantial Risk for: harm to self Time Spent With Patient Time: Total time managing care of this patient today ____ minutes.
[2024-09-25] MEDS: Venlafaxine HCl ER 75 MG CAP.ER.24H PO (08:40)
[2024-09-25 09:06] VITALS: BP 115/66; PULSE 75; RESP 18; O2SAT 93
[2024-09-25 19:55] VITALS: BP 112/57; PULSE 85; RESP 15; TEMP 36.7; O2SAT 96
--- NOTE | 2024-09-26 07:30 | P.PNPSI_ITS ---
Subjective Subjective Date of Service: 09/26/24 Reason For Visit: MDD,borderline personality disorder,opiate use d/o Interim History: met with patient. Discussed with nursing . no significant changes from yesterday. Reports anxiety and depression getting less. Aware venlafaxine will stop today and Prozac increased tomorrow. Educated around nitrofurantoin for 3 days and then discontinue as patient is complaining of UTI symptoms. Sleep okay. No SI or psychosis Medication Compliance: Yes Side effects from medications: No Attending Groups: Yes Review of Systems Acute medical concerns: No Review of Systems Review of Systems unremarkable Mental Status Exam Mental Status Exam Narrative: Appearance: Casually dressed, adequate hygiene Behavior: Calm and cooperative throughout the interview. Eye contact is appropriate, and there are no signs of psychomotor agitation or retardation Speech: Talkative and spontaneous Thought process: logical and goal-directed Thought content: denied Suicide ideation Mood: a little better Affect: less flat SI: Reports HI:denies VH/AH:none Delusions: none Insight/judment: Impaired insight and judgment Memory/cog: Alert, oriented x 4. grossly intact to conversational testing Patient Appearance: Appropriate Patient Orientation: Person, Place, Time and Situation Level of Consciousness: Alert Patient Behavior: Talkative and Good Eye Contact Mood Description: Depressed ( less) and Anxious ( less) Affect Description: Flat Patient Cognition Impaired: No Ability to Follow Directions: Good Speech Pattern: Spontaneous Speech Memory Description: Episodic Impaired Diagnostics Vital Signs (24Hr): Vital Signs - 24 hr 09/25/24 08:00 09/25/24 09:06 09/25/24 19:55 Temperature 98.2 F 98.1 F Pulse Rate 74 75 85 Respiratory Rate 19 18 15 Blood Pressure 160/75 H 115/66 112/57 L Pulse Oximetry 96 93 96 Oxygen Delivery Method Room Air Room Air Labs 09/22/24 07:47 09/22/24 07:47 Labs: Laboratory Results - last 48 hr 09/24/24 13:00 Urine Color Yellow Urine Appearance Clear Urine pH 5.5 Ur Specific [place] 1.020 Urine Protein Negative Urine Glucose (UA) Negative Urine Ketones Negative Urine Blood Negative Urine Nitrite Negative Ur Leukocyte Esterase Small (1+) H Urine RBC 0-2 Urine WBC 6-10 H Ur Squamous Epith Cells 3-5 Urine Bacteria Trace Hyaline Casts 0-2 Medications Medications Current Medications Acetaminophen (Acetaminophen 325 Mg Tablet) 975 mg PO Q6H PRN PRN Reason: Headache/Pain, Scale 1-10 Al Hydroxide/Mg Hydroxide (Magnesium Hydrox/Alum Hydrox 30 Ml Oral.Susp) 30 ml PO Q6H PRN PRN Reason: Heartburn/Nausea Last Admin: 09/12/24 10:53 Dose: 30 ml Alprazolam (Alprazolam 0.5 Mg Tablet) 2 mg PO TID [facility] Last Admin: 09/25/24 20:17 Dose: 2 mg Fluoxetine HCl (Fluoxetine Hcl 10 Mg Capsule) 10 mg PO DAILY [facility] Stop: 09/26/24 10:00 Last Admin: 09/25/24 08:40 Dose: 10 mg Fluoxetine HCl (Fluoxetine Hcl 20 Mg Capsule) 20 mg PO DAILY [facility] Hydroxyzine HCl (Hydroxyzine Hcl 25 Mg Tablet) 25 mg PO Q6H PRN PRN Reason: mild anxiety Lamotrigine (Lamotrigine 100 Mg Tablet) 200 mg PO BID [facility] Last Admin: 09/25/24 20:17 Dose: 200 mg Loperamide HCl (Loperamide Hcl 2 Mg Capsule) 2 mg PO Q6H PRN PRN Reason: Diarrhea Last Admin: 09/19/24 18:22 Dose: 2 mg Magnesium Hydroxide (Milk Of Magnesia 30 Ml Oral.Susp) 30 ml PO DAILY PRN PRN Reason: Constipation Methadone HCl (Methadone Hcl 20 Mg/2 Ml Oral.Conc) 100 mg PO DAILY@0800 [facility] Last Admin: 09/25/24 07:42 Dose: 100 mg Nitrofurantoin Macrocrystals (Nitrofurantoin Macrocrystal 50 Mg Capsule) 100 mg PO Q12H [facility] Stop: 09/28/24 00:00 Last Admin: 09/25/24 20:17 Dose: 100 mg Ondansetron HCl (Ondansetron Odt 4 Mg Tab.Rapdis) 4 mg TRANSLINGU Q8H PRN PRN Reason: Nausea and Vomiting Last Admin: 09/25/24 20:22 Dose: 4 mg Pregabalin (Pregabalin 50 Mg Capsule) 50 mg PO 0900,1500 [facility] Last Admin: 09/25/24 14:32 Dose: 50 mg Valacyclovir HCl (Valacyclovir Hcl 1,000 Mg Tablet) 1,000 mg PO DAILY [facility] Last Admin: 09/25/24 08:40 Dose: 1,000 mg Venlafaxine HCl (Venlafaxine Hcl Er 75 Mg Cap.Er.24h) 75 mg PO DAILY [facility] Stop: 09/26/24 09:00 Last Admin: 09/25/24 08:40 Dose: 75 mg Allergies Allergies Allergy/AdvReac Type Severity Reaction Status Date / Time bupropion (From Wellbutrin) Allergy Severe Hives Verified 09/11/24 13:51 phenobarbital Allergy Severe Hives Verified 09/11/24 13:51 risperidone (From Risperdal) Allergy Severe Hives Verified 09/11/24 13:51 Sulfa (Sulfonamide Allergy Severe Hives Verified 09/11/24 13:51 Antibiotics) Assessment & Plan Assessment & Plan (1) Recurrent major depression: Status: Acute Code(s): F33.9 - Major depressive disorder, recurrent, unspecified (2) Opioid dependence on maintenance agonist therapy, no symptoms: Status: Acute Code(s): F11.20 - Opioid dependence, uncomplicated (3) Benzodiazepine dependence: Status: Acute Code(s): F13.20 - Sedative, hypnotic or anxiolytic dependence, uncomplicated Plan Admit CV, 15 minute checks Collateral Contact Diagnostics as needed ?neuro eval Encourage full milieu Continue current regime at this time Discharge planning 09/13 CAT Brain Continue current tx at this time, await results of CAT 09/14 Cross taper to decrease Venlafaxine and titrate Escitalopram for trial 09/16 Continue tx 09/17: Patient states that she is ?not so good. She notes that she has not been feeling great since she started taking venlafaxine. She notes adverse reactions of the medication including passing out while sitting at a gas station in her parked vehicle and losing sensation from her waist down, over a week ago; those symptoms completely resolved. She reports severe anxiety and depression. She endorses SI with a plan to take a couple of bottle of pills and not wake up. She currently denies HI/AH/VH. Continue current treatment regimen. 09/18: As planned, increase Lexapro to 10 mg. Continue Venlafaxine tapering (decreased to 112.5 from 150 mg this week). 09/19: Some of patient's symptoms are chronic and she has complained of same before. Combination of multiple sedating medications and maybe lowering dose of Effexor. Will attempt decrease in BZD dosing. Per [employer] patient has been on high dose BZD for a long time (Sheronopin 2 mg QID a few months ago and switched to Xanax 2 mg TID by her OP treatment team.) Continue monitor cross taper. 5 min checks. 09/20: Decrease Lyrica to 50 mg BID. Consider slow taper of Xanax. Continue cross taper Effexor to Lexapro per primary team. 09/21: DC Nicotine Patch DC Lexapro-pt feels she is not able to tolerate this Increase Effexor XR to 150 mg daily (Base dosing before cross tapering) SARS/FLU/RSV testing 09/24: Renal ultrasound per recommendation of hospitalist team who pt refused to meet with. Nitrofurantoin 100 mg bid for 5 days Venlafaxine 75 mg daily. To stop 09/26 Fluoxetine to increase to 20 mg on 09/27. Pt may need to see the hospitalist if flank pain increased, ?renal calculi 09/25/2024: Transitioning from venlafaxine to fluoxetine. Renal ultrasound 09/24/2024 unremarkable and normal kidneys. Noted urinalysis from 09/22/2024 and 09/24/2024 largely inconclusive with likely contamination. That being said will start on nitrofurantoin and will continue same for 3 days and then discontinue as patient is complaining of UTI symptoms. 09/26/2024: No changes, last dose of Effexor today. Fluoxetine will increase to 20 mg tomorrow Reason for continued inpatient stay Substantial Risk for: harm to self Time Spent With Patient Time: Total time managing care of this patient today ____ minutes.
[2024-09-26] MEDS: methADONE HCl 20 MG/2 ML ORAL.CONC 100 MG PO (07:43)
[2024-09-26 08:00] VITALS: BP 127/71; PULSE 66; TEMP 36.5; O2SAT 96
[2024-09-26] MEDS: Venlafaxine HCl ER 75 MG CAP.ER.24H PO (08:27)
[2024-09-26 19:46] VITALS: BP 104/56; PULSE 93; RESP 15; TEMP 36.4; O2SAT 71
[2024-09-27] MEDS: methADONE HCl 20 MG/2 ML ORAL.CONC 100 MG PO (07:46)
[2024-09-27 08:00] VITALS: BP 137/76; PULSE 64; RESP 16; TEMP 36.4; O2SAT 98
--- NOTE | 2024-09-27 11:05 | HO.PSYCHPN ---
Subjective Subjective Date of Service: 09/27/24 Reason For Visit: MDD,borderline personality disorder,opiate use d/o Interim History: Met with patient. Discussed with nursing . no significant changes from yesterday. Reports anxiety and depression getting less. Clarified that venlafaxine stopped yesterday and confirmed prozac was 20mg today. Attending groups. IN milieu. Sleep okay. No SI or psychosis Medication Compliance: Yes Side effects from medications: No Attending Groups: Yes Review of Systems Acute medical concerns: No Review of Systems Review of Systems unremarkable Mental Status Exam Mental Status Exam Narrative: Appearance: Casually dressed, adequate hygiene Behavior: Calm and cooperative throughout the interview. Eye contact is appropriate, and there are no signs of psychomotor agitation or retardation Speech: Talkative and spontaneous Thought process: logical and goal-directed Thought content: denied Suicide ideation Mood: a little better Affect: less flat SI: Reports HI:denies VH/AH:none Delusions: none Insight/judment: Impaired insight and judgment Memory/cog: Alert, oriented x 4. grossly intact to conversational testing Diagnostics Vital Signs (24Hr): Vital Signs - 24 hr 09/26/24 19:46 09/27/24 08:00 Temperature 97.6 F 97.5 F Pulse Rate 93 64 Respiratory Rate 15 16 Blood Pressure 104/56 L 137/76 Pulse Oximetry 71 L 98 Labs 09/22/24 07:47 09/22/24 07:47 Medications Medications Current Medications Acetaminophen (Acetaminophen 325 Mg Tablet) 975 mg PO Q6H PRN PRN Reason: Headache/Pain, Scale 1-10 Last Admin: 09/27/24 01:54 Dose: 975 mg Al Hydroxide/Mg Hydroxide (Magnesium Hydrox/Alum Hydrox 30 Ml Oral.Susp) 30 ml PO Q6H PRN PRN Reason: Heartburn/Nausea Last Admin: 09/12/24 10:53 Dose: 30 ml Alprazolam (Alprazolam 0.5 Mg Tablet) 2 mg PO TID [facility] Last Admin: 09/27/24 08:29 Dose: 2 mg Fluoxetine HCl (Fluoxetine Hcl 20 Mg Capsule) 20 mg PO DAILY [facility] Last Admin: 09/27/24 08:30 Dose: 20 mg Hydroxyzine HCl (Hydroxyzine Hcl 25 Mg Tablet) 25 mg PO Q6H PRN PRN Reason: mild anxiety Lamotrigine (Lamotrigine 100 Mg Tablet) 200 mg PO BID [facility] Last Admin: 09/27/24 08:30 Dose: 200 mg Loperamide HCl (Loperamide Hcl 2 Mg Capsule) 2 mg PO Q6H PRN PRN Reason: Diarrhea Last Admin: 09/19/24 18:22 Dose: 2 mg Magnesium Hydroxide (Milk Of Magnesia 30 Ml Oral.Susp) 30 ml PO DAILY PRN PRN Reason: Constipation Methadone HCl (Methadone Hcl 20 Mg/2 Ml Oral.Conc) 100 mg PO DAILY@0800 [facility] Last Admin: 09/27/24 07:46 Dose: 100 mg Nitrofurantoin Macrocrystals (Nitrofurantoin Macrocrystal 50 Mg Capsule) 100 mg PO Q12H [facility] Stop: 09/28/24 00:00 Last Admin: 09/27/24 08:30 Dose: 100 mg Ondansetron HCl (Ondansetron Odt 4 Mg Tab.Rapdis) 4 mg TRANSLINGU Q8H PRN PRN Reason: Nausea and Vomiting Last Admin: 09/26/24 20:04 Dose: 4 mg Pregabalin (Pregabalin 50 Mg Capsule) 50 mg PO 0900,1500 [facility] Last Admin: 09/27/24 08:29 Dose: 50 mg Valacyclovir HCl (Valacyclovir Hcl 1,000 Mg Tablet) 1,000 mg PO DAILY [facility] Last Admin: 09/27/24 08:29 Dose: 1,000 mg Allergies Allergies Allergy/AdvReac Type Severity Reaction Status Date / Time bupropion (From Wellbutrin) Allergy Severe Hives Verified 09/11/24 13:51 phenobarbital Allergy Severe Hives Verified 09/11/24 13:51 risperidone (From Risperdal) Allergy Severe Hives Verified 09/11/24 13:51 Sulfa (Sulfonamide Allergy Severe Hives Verified 09/11/24 13:51 Antibiotics) Assessment & Plan Assessment & Plan (1) Recurrent major depression: Status: Acute Code(s): F33.9 - Major depressive disorder, recurrent, unspecified (2) Opioid dependence on maintenance agonist therapy, no symptoms: Status: Acute Code(s): F11.20 - Opioid dependence, uncomplicated (3) Benzodiazepine dependence: Status: Acute Code(s): F13.20 - Sedative, hypnotic or anxiolytic dependence, uncomplicated Plan Admit CV, 15 minute checks Collateral Contact Diagnostics as needed ?neuro eval Encourage full milieu Continue current regime at this time Discharge planning 09/13 CAT Brain Continue current tx at this time, await results of CAT 09/14 Cross taper to decrease Venlafaxine and titrate Escitalopram for trial 09/16 Continue tx 09/17: Patient states that she is ?not so good. She notes that she has not been feeling great since she started taking venlafaxine. She notes adverse reactions of the medication including passing out while sitting at a gas station in her parked vehicle and losing sensation from her waist down, over a week ago; those symptoms completely resolved. She reports severe anxiety and depression. She endorses SI with a plan to take a couple of bottle of pills and not wake up. She currently denies HI/AH/VH. Continue current treatment regimen. 09/18: As planned, increase Lexapro to 10 mg. Continue Venlafaxine tapering (decreased to 112.5 from 150 mg this week). 09/19: Some of patient's symptoms are chronic and she has complained of same before. Combination of multiple sedating medications and maybe lowering dose of Effexor. Will attempt decrease in BZD dosing. Per [facility] patient has been on high dose BZD for a long time (Klonopin 2 mg QID a few months ago and switched to Xanax 2 mg TID by her OP treatment team.) Continue monitor cross taper. 5 min checks. 09/20: Decrease Lyrica to 50 mg BID. Consider slow taper of Xanax. Continue cross taper Effexor to Lexapro per primary team. 09/21: DC Nicotine Patch DC Lexapro-pt feels she is not able to tolerate this Increase Effexor XR to 150 mg daily (Base dosing before cross tapering) SARS/FLU/RSV testing 09/24: Renal ultrasound per recommendation of hospitalist team who pt refused to meet with. Nitrofurantoin 100 mg bid for 5 days Venlafaxine 75 mg daily. To stop 09/26 Fluoxetine to increase to 20 mg on 09/27. Pt may need to see the hospitalist if flank pain increased, ?renal calculi 09/25/2024: Transitioning from venlafaxine to fluoxetine. Renal ultrasound 09/24/2024 unremarkable and normal kidneys. Noted urinalysis from 09/22/2024 and 09/24/2024 largely inconclusive with likely contamination. That being said will start on nitrofurantoin and will continue same for 3 days and then discontinue as patient is complaining of UTI symptoms. 09/26/2024: No changes, last dose of Effexor today. Fluoxetine will increase to 20 mg tomorrow 09/27: no changes Reason for continued inpatient stay Substantial Risk for: rapid decompensation Time Spent With Patient Time: Total time managing care of this patient today ____ minutes.
[2024-09-27 19:50] VITALS: BP 93/50; PULSE 69; RESP 15; TEMP 36.4; O2SAT 91
[2024-09-28] MEDS: methADONE HCl 20 MG/2 ML ORAL.CONC 100 MG PO (07:40)
[2024-09-28 08:00] VITALS: BP 129/63; PULSE 76; TEMP 36.6; O2SAT 97
--- NOTE | 2024-09-28 09:41 | P.PNPSI_ITS ---
Subjective Subjective Date of Service: 09/28/24 Reason For Visit: MDD,borderline personality disorder,opiate use d/o Subjective Notes: Conditional Voluntary Healthcare Proxy: No Guardianship: No Medical Problems Affecting Mental Status: No Interim History: Reports feeling improved. Visable and social in milieu, participating in groups however with some sedation noted. Planning DC for 10/01- will return to OP team in [place], [place] and psychiatrist in [place]. Denies current psychiatric/medical sx, however with some mild UTI-like sx. Urine Culture, BV, CTNG sent. Tolerating Prozac at 20 mg, reports mild GI distress however reports this to be managable. Medication Compliance: Yes Side effects from medications: No Attending Groups: Yes Review of Systems Acute medical concerns: No Medical Review of Systems: unchanged Review of Systems Review of Systems Mild uti-like sx. Urine Culture, BV, CTNG panels ordered Mental Status Exam Mental Status Exam Patient Appearance: Appropriate Patient Orientation: Person, Place, Time and Situation Level of Consciousness: Alert Patient Behavior: Appropriate, Talkative, Cooperative and Good Eye Contact Mood Description: Calm and Appropriate Affect Description: Calm and Appropriate Patient Cognition Impaired: No Ability to Follow Directions: Good Speech Pattern: Spontaneous Speech Memory Description: Intact Hallucinations: None Delusions: Not Present Thought Process: Intact, Distracted and Goal Oriented Thought Content: positive for Intact and positive for Goal Oriented Judgement: Good Diagnostics Vital Signs (24Hr): Vital Signs - 24 hr 09/27/24 19:50 09/28/24 08:00 Temperature 97.5 F 97.9 F Pulse Rate 69 76 Respiratory Rate 15 Blood Pressure 93/50 L 129/63 Pulse Oximetry 91 L 97 Oxygen Delivery Method Room Air Labs 09/22/24 07:47 09/22/24 07:47 Medications Medications Current Medications Acetaminophen (Acetaminophen 325 Mg Tablet) 975 mg PO Q6H PRN PRN Reason: Headache/Pain, Scale 1-10 Last Admin: 09/27/24 01:54 Dose: 975 mg Al Hydroxide/Mg Hydroxide (Magnesium Hydrox/Alum Hydrox 30 Ml Oral.Susp) 30 ml PO Q6H PRN PRN Reason: Heartburn/Nausea Last Admin: 09/12/24 10:53 Dose: 30 ml Alprazolam (Alprazolam 0.5 Mg Tablet) 2 mg PO TID [facility] Last Admin: 09/28/24 08:34 Dose: 2 mg Fluoxetine HCl (Fluoxetine Hcl 20 Mg Capsule) 20 mg PO DAILY [facility] Last Admin: 09/28/24 08:35 Dose: 20 mg Hydroxyzine HCl (Hydroxyzine Hcl 25 Mg Tablet) 25 mg PO Q6H PRN PRN Reason: mild anxiety Lamotrigine (Lamotrigine 100 Mg Tablet) 200 mg PO BID [facility] Last Admin: 09/28/24 08:34 Dose: 200 mg Loperamide HCl (Loperamide Hcl 2 Mg Capsule) 2 mg PO Q6H PRN PRN Reason: Diarrhea Last Admin: 09/19/24 18:22 Dose: 2 mg Magnesium Hydroxide (Milk Of Magnesia 30 Ml Oral.Susp) 30 ml PO DAILY PRN PRN Reason: Constipation Methadone HCl (Methadone Hcl 20 Mg/2 Ml Oral.Conc) 100 mg PO DAILY@0800 [facility] Last Admin: 09/28/24 07:40 Dose: 100 mg Ondansetron HCl (Ondansetron Odt 4 Mg Tab.Rapdis) 4 mg TRANSLINGU Q8H PRN PRN Reason: Nausea and Vomiting Last Admin: 09/28/24 06:04 Dose: 4 mg Pregabalin (Pregabalin 50 Mg Capsule) 50 mg PO 0900,1500 [facility] Last Admin: 09/28/24 08:34 Dose: 50 mg Valacyclovir HCl (Valacyclovir Hcl 1,000 Mg Tablet) 1,000 mg PO DAILY [facility] Last Admin: 09/28/24 08:34 Dose: 1,000 mg Allergies Allergies Allergy/AdvReac Type Severity Reaction Status Date / Time bupropion (From Wellbutrin) Allergy Severe Hives Verified 09/11/24 13:51 phenobarbital Allergy Severe Hives Verified 09/11/24 13:51 risperidone (From Risperdal) Allergy Severe Hives Verified 09/11/24 13:51 Sulfa (Sulfonamide Allergy Severe Hives Verified 09/11/24 13:51 Antibiotics) Assessment & Plan Assessment & Plan (1) Recurrent major depression: Status: Acute Code(s): F33.9 - Major depressive disorder, recurrent, unspecified (2) Opioid dependence on maintenance agonist therapy, no symptoms: Status: Acute Code(s): F11.20 - Opioid dependence, uncomplicated (3) Benzodiazepine dependence: Status: Acute Code(s): F13.20 - Sedative, hypnotic or anxiolytic dependence, uncomplicated Plan Admit CV, 15 minute checks Collateral Contact Diagnostics as needed ?neuro eval Encourage full milieu Continue current regime at this time Discharge planning 09/13 CAT Brain Continue current tx at this time, await results of CAT 09/14 Cross taper to decrease Venlafaxine and titrate Escitalopram for trial 09/16 Continue tx 09/17: Patient states that she is ?not so good. She notes that she has not been feeling great since she started taking venlafaxine. She notes adverse reactions of the medication including passing out while sitting at a gas station in her parked vehicle and losing sensation from her waist down, over a week ago; those symptoms completely resolved. She reports severe anxiety and depression. She endorses SI with a plan to take a couple of bottle of pills and not wake up. She currently denies HI/AH/VH. Continue current treatment regimen. 09/18: As planned, increase Lexapro to 10 mg. Continue Venlafaxine tapering (decreased to 112.5 from 150 mg this week). 09/19: Some of patient's symptoms are chronic and she has complained of same before. Combination of multiple sedating medications and maybe lowering dose of Effexor. Will attempt decrease in BZD dosing. Per [facility] patient has been on high dose BZD for a long time (Klonopin 2 mg QID a few months ago and switched to Xanax 2 mg TID by her OP treatment team.) Continue monitor cross taper. 5 min checks. 09/20: Decrease Lyrica to 50 mg BID. Consider slow taper of Xanax. Continue cross taper Effexor to Lexapro per primary team. 09/21: DC Nicotine Patch DC Lexapro-pt feels she is not able to tolerate this Increase Effexor XR to 150 mg daily (Base dosing before cross tapering) SARS/FLU/RSV testing 09/24: Renal ultrasound per recommendation of hospitalist team who pt refused to meet with. Nitrofurantoin 100 mg bid for 5 days Venlafaxine 75 mg daily. To stop 09/26 Fluoxetine to increase to 20 mg on 09/27. Pt may need to see the hospitalist if flank pain increased, ?renal calculi 09/25/2024: Transitioning from venlafaxine to fluoxetine. Renal ultrasound 09/24/2024 unremarkable and normal kidneys. Noted urinalysis from 09/22/2024 and 09/24/2024 largely inconclusive with likely contamination. That being said will start on nitrofurantoin and will continue same for 3 days and then discontinue as patient is complaining of UTI symptoms. 09/26/2024: No changes, last dose of Effexor today. Fluoxetine will increase to 20 mg tomorrow 09/27: no changes 09/28: Urine culture, BV, CTNG panels ordered. Informed Consent: understands Reason for continued inpatient stay Substantial Risk for: rapid decompensation Time Spent With Patient Time: Total time managing care of this patient today ____ minutes.
[2024-09-28 15:33] LABS: Bacterial Vaginosis PCR NEGATIVE (Negative); Candida Group PCR NOT DETECTED (Not Detect); Candida glab krusei PCR NOT DETECTED (Not Detect); Trichomonas vaginalis PCR NOT DETECTED (Not Detect)
[2024-09-28 16:04] LABS: CT PCR NOT DETECTED (Not Detect.); NG PCR NOT DETECTED (Not Detect.)
[2024-09-28 19:40] VITALS: BP 91/62; PULSE 91; TEMP 36.4; O2SAT 96
[2024-09-29] MEDS: methADONE HCl 20 MG/2 ML ORAL.CONC 100 MG PO (07:50)
[2024-09-29 08:00] VITALS: BP 140/65; PULSE 64; TEMP 36.1; O2SAT 100
--- NOTE | 2024-09-29 09:49 | P.PNPSI_ITS ---
Subjective Subjective Date of Service: 09/29/24 Reason For Visit: MDD,borderline personality disorder,opiate use d/o Subjective Notes: Conditional Voluntary Healthcare Proxy: No Guardianship: No Medical Problems Affecting Mental Status: No Interim History: Met with pt and Jennifer Barraza LCSW to review discharge planning. Transportation arranged with insurance during this meeting . Confirmation No. [id number] with Medical Transport to pt's home in [place], [place] for 10/01 11:30a.m. Diagnostics were reviewed: urine culture, BV, CTNG were all negative. Pt reports tolerating med regime and feeling prepared to discharge. Overall reports symptom improvement. Medication Compliance: Yes Side effects from medications: No Attending Groups: Yes Review of Systems Acute medical concerns: No Review of Systems Review of Systems Denies today Mental Status Exam Mental Status Exam Patient Appearance: Appropriate Patient Orientation: Person, Place, Time and Situation Level of Consciousness: Alert Patient Behavior: Appropriate, Talkative, Cooperative and Good Eye Contact Mood Description: Calm and Appropriate Affect Description: Calm and Appropriate Patient Cognition Impaired: No Ability to Follow Directions: Good Speech Pattern: Spontaneous Speech Memory Description: Intact Hallucinations: None Delusions: Not Present Thought Process: Intact, Distracted and Goal Oriented Thought Content: positive for Intact and positive for Goal Oriented Judgement: Good Diagnostics Vital Signs (24Hr): Vital Signs - 24 hr 09/28/24 19:40 09/29/24 08:00 Temperature 97.6 F 97.0 F Pulse Rate 91 64 Blood Pressure 91/62 140/65 H Pulse Oximetry 96 100 Oxygen Delivery Method Room Air Labs 09/22/24 07:47 09/22/24 07:47 Labs: Laboratory Results - last 48 hr 09/28/24 13:55 Chlam trachomat DNA PCR NOT DETECTED N.gonorrhoeae DNA (PCR) NOT DETECTED T. vaginalis (PCR) NOT DETECTED Bact vaginosis (PCR) NEGATIVE C. krusei/glabrata (PCR) NOT DETECTED Mel group (PCR) NOT DETECTED Medications Medications Current Medications Acetaminophen (Acetaminophen 325 Mg Tablet) 975 mg PO Q6H PRN PRN Reason: Headache/Pain, Scale 1-10 Last Admin: 09/29/24 03:13 Dose: 975 mg Al Hydroxide/Mg Hydroxide (Magnesium Hydrox/Alum Hydrox 30 Ml Oral.Susp) 30 ml PO Q6H PRN PRN Reason: Heartburn/Nausea Last Admin: 09/12/24 10:53 Dose: 30 ml Alprazolam (Alprazolam 0.5 Mg Tablet) 2 mg PO TID REPLACED BY [facility] Last Admin: 09/29/24 08:29 Dose: 2 mg Bisacodyl (Bisacodyl 5 Mg Tablet.Dr) 10 mg PO BEDTIME PRN PRN Reason: Constipation Fluoxetine HCl (Fluoxetine Hcl 20 Mg Capsule) 20 mg PO DAILY REPLACED BY [facility] Last Admin: 09/29/24 08:30 Dose: 20 mg Hydroxyzine HCl (Hydroxyzine Hcl 25 Mg Tablet) 25 mg PO Q6H PRN PRN Reason: mild anxiety Lamotrigine (Lamotrigine 100 Mg Tablet) 200 mg PO BID REPLACED BY [facility] Last Admin: 09/29/24 08:30 Dose: 200 mg Loperamide HCl (Loperamide Hcl 2 Mg Capsule) 2 mg PO Q6H PRN PRN Reason: Diarrhea Last Admin: 09/19/24 18:22 Dose: 2 mg Magnesium Hydroxide (Milk Of Magnesia 30 Ml Oral.Susp) 30 ml PO DAILY PRN PRN Reason: Constipation Methadone HCl (Methadone Hcl 20 Mg/2 Ml Oral.Conc) 100 mg PO DAILY@0800 REPLACED BY [facility] Last Admin: 09/29/24 07:50 Dose: 100 mg Ondansetron HCl (Ondansetron Odt 4 Mg Tab.Rapdis) 4 mg TRANSLINGU Q8H PRN PRN Reason: Nausea and Vomiting Last Admin: 09/29/24 03:14 Dose: 4 mg Pregabalin (Pregabalin 50 Mg Capsule) 50 mg PO 0900,1500 REPLACED BY [facility] Last Admin: 09/29/24 08:30 Dose: 50 mg Valacyclovir HCl (Valacyclovir Hcl 1,000 Mg Tablet) 1,000 mg PO DAILY REPLACED BY [facility] Last Admin: 09/29/24 08:30 Dose: 1,000 mg Allergies Allergies Allergy/AdvReac Type Severity Reaction Status Date / Time bupropion (From Wellbutrin) Allergy Severe Hives Verified 09/11/24 13:51 phenobarbital Allergy Severe Hives Verified 09/11/24 13:51 risperidone (From Risperdal) Allergy Severe Hives Verified 09/11/24 13:51 Sulfa (Sulfonamide Allergy Severe Hives Verified 09/11/24 13:51 Antibiotics) venlafaxine AdvReac Severe incontinenc Verified 09/28/24 11:51 e Assessment & Plan Assessment & Plan (1) Recurrent major depression: Status: Acute Code(s): F33.9 - Major depressive disorder, recurrent, unspecified (2) Opioid dependence on maintenance agonist therapy, no symptoms: Status: Acute Code(s): F11.20 - Opioid dependence, uncomplicated (3) Benzodiazepine dependence: Status: Acute Code(s): F13.20 - Sedative, hypnotic or anxiolytic dependence, uncomplicated Plan Admit CV, 15 minute checks Collateral Contact Diagnostics as needed ?neuro eval Encourage full milieu Continue current regime at this time Discharge planning 09/13 CAT Brain Continue current tx at this time, await results of CAT 09/14 Cross taper to decrease Venlafaxine and titrate Escitalopram for trial 09/16 Continue tx 09/17: Patient states that she is ?not so good. She notes that she has not been feeling great since she started taking venlafaxine. She notes adverse reactions of the medication including passing out while sitting at a gas station in her parked vehicle and losing sensation from her waist down, over a week ago; those symptoms completely resolved. She reports severe anxiety and depression. She endorses SI with a plan to take a couple of bottle of pills and not wake up. She currently denies HI/AH/VH. Continue current treatment regimen. 09/18: As planned, increase Lexapro to 10 mg. Continue Venlafaxine tapering (decreased to 112.5 from 150 mg this week). 09/19: Some of patient's symptoms are chronic and she has complained of same before. Combination of multiple sedating medications and maybe lowering dose of Effexor. Will attempt decrease in BZD dosing. Per [facility] patient has been on high dose BZD for a long time (Klonopin 2 mg QID a few months ago and switched to Xanax 2 mg TID by her OP treatment team.) Continue monitor cross taper. 5 min checks. 09/20: Decrease Lyrica to 50 mg BID. Consider slow taper of Xanax. Continue cross taper Effexor to Lexapro per primary team. 09/21: DC Nicotine Patch DC Lexapro-pt feels she is not able to tolerate this Increase Effexor XR to 150 mg daily (Base dosing before cross tapering) SARS/FLU/RSV testing 09/24: Renal ultrasound per recommendation of hospitalist team who pt refused to meet with. Nitrofurantoin 100 mg bid for 5 days Venlafaxine 75 mg daily. To stop 09/26 Fluoxetine to increase to 20 mg on 09/27. Pt may need to see the hospitalist if flank pain increased, ?renal calculi 09/25/2024: Transitioning from venlafaxine to fluoxetine. Renal ultrasound 09/24/2024 unremarkable and normal kidneys. Noted urinalysis from 09/22/2024 and 09/24/2024 largely inconclusive with likely contamination. That being said will start on nitrofurantoin and will continue same for 3 days and then discontinue as patient is complaining of UTI symptoms. 09/26/2024: No changes, last dose of Effexor today. Fluoxetine will increase to 20 mg tomorrow 09/27: no changes 09/29/24: DC 10/01. Continue current regime. Reason for continued inpatient stay Substantial Risk for: rapid decompensation Time Spent With Patient Time: Total time managing care of this patient today ____ minutes.
[2024-09-29 20:00] VITALS: BP 109/50; PULSE 66; RESP 16; TEMP 36.7; O2SAT 95
[2024-09-30] MEDS: methADONE HCl 20 MG/2 ML ORAL.CONC 100 MG PO (07:48)
[2024-09-30 08:00] VITALS: BP 123/76; PULSE 70; TEMP 36.6; O2SAT 98
--- NOTE | 2024-09-30 10:51 | P.PNPSI_ITS ---
Subjective Subjective Date of Service: 09/30/24 Reason For Visit: MDD,borderline personality disorder,opiate use d/o Subjective Notes: Conditional Voluntary Interim History: Prepared for discharge. Denies SI,HI,AH,VH Reports she feels improved Agrees to labs in the a.m. Review of medications, recommended ongoing tapering of Lyrica and Xanax Pt will have therapy/meds with one local provider as her telehealth provider has indicated she needs a higher level of care after two recent hospitalizations. Medication Compliance: Yes Side effects from medications: No Attending Groups: Yes Review of Systems Acute medical concerns: No Review of Systems Review of Systems Denies Mental Status Exam Mental Status Exam Patient Appearance: Appropriate Patient Orientation: Person, Place, Time and Situation Level of Consciousness: Alert Patient Behavior: Appropriate, Talkative, Cooperative and Good Eye Contact Mood Description: Calm and Appropriate Affect Description: Calm and Appropriate Patient Cognition Impaired: No Ability to Follow Directions: Good Speech Pattern: Spontaneous Speech Memory Description: Intact Hallucinations: None Delusions: Not Present Thought Process: Intact, Distracted and Goal Oriented Thought Content: positive for Intact and positive for Goal Oriented Judgement: Good Diagnostics Vital Signs (24Hr): Vital Signs - 24 hr 09/29/24 20:00 09/30/24 08:00 Temperature 98.1 F 97.8 F Pulse Rate 66 70 Respiratory Rate 16 Blood Pressure 109/50 L 123/76 Pulse Oximetry 95 98 Oxygen Delivery Method Room Air Room Air Labs 10/01/24 09:05 10/01/24 09:05 Labs: Laboratory Results - last 48 hr 09/28/24 13:55 Chlam trachomat DNA PCR NOT DETECTED N.gonorrhoeae DNA (PCR) NOT DETECTED T. vaginalis (PCR) NOT DETECTED Bact vaginosis (PCR) NEGATIVE C. krusei/glabrata (PCR) NOT DETECTED Mel group (PCR) NOT DETECTED Medications Medications Current Medications Acetaminophen (Acetaminophen 325 Mg Tablet) 975 mg PO Q6H PRN PRN Reason: Headache/Pain, Scale 1-10 Last Admin: 09/29/24 14:07 Dose: 975 mg Al Hydroxide/Mg Hydroxide (Magnesium Hydrox/Alum Hydrox 30 Ml Oral.Susp) 30 ml PO Q6H PRN PRN Reason: Heartburn/Nausea Last Admin: 09/12/24 10:53 Dose: 30 ml Alprazolam (Alprazolam 0.5 Mg Tablet) 2 mg PO TID [facility] Last Admin: 09/30/24 08:31 Dose: 2 mg Bisacodyl (Bisacodyl 5 Mg Tablet.Dr) 10 mg PO BEDTIME PRN PRN Reason: Constipation Fluoxetine HCl (Fluoxetine Hcl 20 Mg Capsule) 20 mg PO DAILY [facility] Last Admin: 09/30/24 08:32 Dose: 20 mg Hydroxyzine HCl (Hydroxyzine Hcl 25 Mg Tablet) 25 mg PO Q6H PRN PRN Reason: mild anxiety Lamotrigine (Lamotrigine 100 Mg Tablet) 200 mg PO BID [facility] Last Admin: 09/30/24 08:30 Dose: 200 mg Loperamide HCl (Loperamide Hcl 2 Mg Capsule) 2 mg PO Q6H PRN PRN Reason: Diarrhea Last Admin: 09/19/24 18:22 Dose: 2 mg Magnesium Hydroxide (Milk Of Magnesia 30 Ml Oral.Susp) 30 ml PO DAILY PRN PRN Reason: Constipation Methadone HCl (Methadone Hcl 20 Mg/2 Ml Oral.Conc) 100 mg PO DAILY@0800 [facility] Last Admin: 09/30/24 07:48 Dose: 100 mg Ondansetron HCl (Ondansetron Odt 4 Mg Tab.Rapdis) 4 mg TRANSLINGU Q8H PRN PRN Reason: Nausea and Vomiting Last Admin: 09/30/24 03:16 Dose: 4 mg Pregabalin (Pregabalin 50 Mg Capsule) 50 mg PO 0900,1500 [facility] Last Admin: 09/30/24 08:32 Dose: 50 mg Valacyclovir HCl (Valacyclovir Hcl 1,000 Mg Tablet) 1,000 mg PO DAILY [facility] Last Admin: 09/30/24 08:32 Dose: 1,000 mg Allergies Allergies Allergy/AdvReac Type Severity Reaction Status Date / Time bupropion (From Wellbutrin) Allergy Severe Hives Verified 09/11/24 13:51 phenobarbital Allergy Severe Hives Verified 09/11/24 13:51 risperidone (From Risperdal) Allergy Severe Hives Verified 09/11/24 13:51 Sulfa (Sulfonamide Allergy Severe Hives Verified 09/11/24 13:51 Antibiotics) venlafaxine AdvReac Severe incontinenc Verified 09/28/24 11:51 e Assessment & Plan Assessment & Plan (1) Recurrent major depression: Status: Acute Code(s): F33.9 - Major depressive disorder, recurrent, unspecified (2) Opioid dependence on maintenance agonist therapy, no symptoms: Status: Acute Code(s): F11.20 - Opioid dependence, uncomplicated (3) Benzodiazepine dependence: Status: Acute Code(s): F13.20 - Sedative, hypnotic or anxiolytic dependence, uncomplicated Plan Admit CV, 15 minute checks Collateral Contact Diagnostics as needed ?neuro eval Encourage full milieu Continue current regime at this time Discharge planning 09/13 CAT Brain Continue current tx at this time, await results of CAT 09/14 Cross taper to decrease Venlafaxine and titrate Escitalopram for trial 09/16 Continue tx 09/17: Patient states that she is ?not so good. She notes that she has not been feeling great since she started taking venlafaxine. She notes adverse reactions of the medication including passing out while sitting at a gas station in her parked vehicle and losing sensation from her waist down, over a week ago; those symptoms completely resolved. She reports severe anxiety and depression. She endorses SI with a plan to take a couple of bottle of pills and not wake up. She currently denies HI/AH/VH. Continue current treatment regimen. 09/18: As planned, increase Lexapro to 10 mg. Continue Venlafaxine tapering (decreased to 112.5 from 150 mg this week). 09/19: Some of patient's symptoms are chronic and she has complained of same before. Combination of multiple sedating medications and maybe lowering dose of Effexor. Will attempt decrease in BZD dosing. Per [facility] patient has been on high dose BZD for a long time (Klonopin 2 mg QID a few months ago and switched to Xanax 2 mg TID by her OP treatment team.) Continue monitor cross taper. 5 min checks. 09/20: Decrease Lyrica to 50 mg BID. Consider slow taper of Xanax. Continue cross taper Effexor to Lexapro per primary team. 09/21: DC Nicotine Patch DC Lexapro-pt feels she is not able to tolerate this Increase Effexor XR to 150 mg daily (Base dosing before cross tapering) SARS/FLU/RSV testing 09/24: Renal ultrasound per recommendation of hospitalist team who pt refused to meet with. Nitrofurantoin 100 mg bid for 5 days Venlafaxine 75 mg daily. To stop 09/26 Fluoxetine to increase to 20 mg on 09/27. Pt may need to see the hospitalist if flank pain increased, ?renal calculi 09/25/2024: Transitioning from venlafaxine to fluoxetine. Renal ultrasound 09/24/2024 unremarkable and normal kidneys. Noted urinalysis from 09/22/2024 and 09/24/2024 largely inconclusive with likely contamination. That being said will start on nitrofurantoin and will continue same for 3 days and then discontinue as patient is complaining of UTI symptoms. 09/26/2024: No changes, last dose of Effexor today. Fluoxetine will increase to 20 mg tomorrow 09/27: no changes 09/28: Urine culture, BV, CTNG panels ordered. 09/30: DC 10/01. Pt is prepared. Labs in the a.m. to send to PCP. Reason for continued inpatient stay Substantial Risk for: rapid decompensation Time Spent With Patient Time: Total time managing care of this patient today ____ minutes.
[2024-09-30 20:00] VITALS: BP 119/68; PULSE 75; RESP 18; TEMP 36.4; O2SAT 96
[2024-10-01] MEDS: methADONE HCl 20 MG/2 ML ORAL.CONC 100 MG PO (07:58)
[2024-10-01 08:00] VITALS: BP 145/89; PULSE 70; RESP 16; TEMP 36.4; O2SAT 99
[2024-10-01 09:14] LABS: MANUAL DIFF FLAG NO
[2024-10-01 09:20] LABS: Hematocrit 35.9 % (37.0-47.0); Hemoglobin 12.3 g/dl (12.0-16.0); Imm Gran Abs Auto 0.04 X10*3/uL (0.00-0.03); Imm Gran Pct Auto 0.7 % (0.0-0.4); Lymphocytes Absolute Auto 1.4 X10*3/uL (1.2-4.9); Mean Corpuscular HGB Conc 34.3 g/dl (31.0-35.0); Mean Corpuscular Hemoglobin 30.3 pg (27.0-33.0); Mean Corpuscular Volume 88.4 fL (80.0-98.0); NRBC Abs Auto 0.000 X10*3/uL (0.0-0.012); NRBC Pct Auto 0.0 /100WBC (0.0-0.2); Platelet Count 240 X10*3/uL (160-400); Red Blood Count 4.06 X10*6/uL (4.20-5.50); White Blood Count 5.6 X10*3/uL (4.8-10.8)
--- NOTE | 2024-10-01 09:31 | PM.PSYDC ---
DS: Providers Provider Date of admission: 09/11/24 16:02 Primary care physician: Unknown Physician Consults: 09/11/24 16:51 Consult to Hospitalist Routine Comment: Consulting Provider: [facility] Reason For Exam: Transfer pt 09/23/24 15:37 Consult to Hospitalist Routine Comment: lower back pain, UC pending, Consulting Provider: [facility] Reason For Exam: ?kidney infection DS: Diagnosis Discharge Diagnosis (1) Recurrent major depression: Status: Acute (2) Opioid dependence on maintenance agonist therapy, no symptoms: Status: Acute (3) Benzodiazepine dependence: Status: Acute DS: Medications Discharge Medications Home Medications: Previous Rx's ?Medication ?Instructions ?Recorded acetaminophen 325 mg tablet 975 mg (3 x 325 mg) PO Q6H PRN 09/30/24 Headache/Pain, Scale 1-10 #0 tabs alprazolam 0.5 mg tablet 2 mg (4 x 0.5 mg) PO TID #21 tabs 09/30/24 fluoxetine 20 mg capsule 20 mg PO DAILY #30 caps 09/30/24 lamotrigine 200 mg tablet 200 mg PO BID #60 tabs 09/30/24 (Lamictal) methadone 10 mg/mL oral 100 mg (10 mL) PO DAILY@0800 #0 mL 09/30/24 concentrate (Methadose) pregabalin 50 mg capsule 50 mg PO 0900,1500 #14 caps 09/30/24 valacyclovir 1 gram tablet 1,000 mg PO DAILY #30 tabs 09/30/24 Data Data Completed and Pending Completed studies during hospitalization [Text1]: 09/24/24 09/28/24 10/01/24 13:00 13:55 09:05 WBC 5.6 RBC 4.06 L Hgb 12.3 Hct 35.9 L MCV 88.4 MCH 30.3 MCHC 34.3 RDW 13.8 Plt Count 240 MPV 9.2 L Immature Gran % (Auto) 0.7 H Neut % (Auto) 69.8 Lymph % (Auto) 25.2 [place] % (Auto) 3.1 Eos % (Auto) 0.5 Baso % (Auto) 0.7 Lymph # (Auto) 1.4 [place] # (Auto) 0.2 Eos # (Auto) 0.0 Baso # (Auto) 0.0 Abs Immat Gran (auto) 0.04 H Absolute Neuts (auto) 3.9 Absolute Nucleated RBC 0.000 Nucleated RBC % (auto) 0.0 Sodium Pending Potassium Pending Chloride Pending Carbon Dioxide Pending Anion Gap Pending BUN Pending Creatinine Pending Estim Creat Clear Calc Pending Estimated GFR Pending Random Glucose Pending Calcium Pending Total Bilirubin Pending AST Pending ALT Pending Alkaline Phosphatase Pending Total Protein Pending Albumin Pending Urine Color Yellow Urine Appearance Clear Urine pH 5.5 Ur Specific [place] 1.020 Urine Protein Negative Urine Glucose (UA) Negative Urine Ketones Negative Urine Blood Negative Urine Nitrite Negative Ur Leukocyte Esterase Small (1+) H Urine RBC 0-2 Urine WBC 6-10 H Ur Squamous Epith Cells 3-5 Urine Bacteria Trace Hyaline Casts 0-2 Chlam trachomat DNA PCR NOT DETECTED N.gonorrhoeae DNA (PCR) NOT DETECTED T. vaginalis (PCR) NOT DETECTED Bact vaginosis (PCR) NEGATIVE C. krusei/glabrata (PCR) NOT DETECTED Mel group (PCR) NOT DETECTED 09/28/24 13:55 Urine clean catch - Clean Catch Midstream Urine Culture - Final No growth. 09/24/24 Unknown Urine clean catch - Clean Catch Midstream Urine Culture - Final 09/22/24 18:00 Urine clean catch - Clean Catch Midstream Urine Culture - Final 09/12/24 Unknown Urine clean catch - Clean Catch Midstream Urine Culture - Final DS: Summary Time Spent with Patient Time attestation: Total time managing care of this patient today ____ minutes. Discharge Plan Discharge Anticipated Discharge Date/Time: 10/01/24 12:00 Patient Disposition: Home, Self-Care Discharge Diagnosis: Recurrent Major Depression Benzodiazepine Dependence Opiate Dependence-Methadone Maintenance Referrals: [facility] Therapy with Judy Reyes [Other] - 10/05/24 9:30 am Referral Note: You will need to attend the therapy appointment in order to receive psychiatry referral and will need to follow up with regularly attended therapy sessions in order to receive psychiatry services. [facility]icker Rene [Other] - 10/05/24 10:30 am Referral Note: This appointment is following the therapy appointment with Ria. López will support in your psychiatry referral and follow up. Physician,Unknown J [Primary Care Provider, Medical] - 1 Week Discharge Medications: New acetaminophen 325 mg Tablet 975 mg PO Q6H PRN (Reason: Headache/Pain, Scale 1-10) Qty: 0 0RF alprazolam 0.5 mg Tablet 2 mg PO TID Qty: 21 4RF methadone [Methadose] 10 mg/mL Concentrate 100 mg PO DAILY@0800 Qty: 0 0RF Rx Instructions: Partial Fill upon patient request. fluoxetine 20 mg Capsule 20 mg PO DAILY Qty: 30 0RF pregabalin 50 mg Capsule 50 mg PO 0900,1500 Qty: 14 4RF Continued lamotrigine [Lamictal] 200 mg tablet 200 mg PO BID Qty: 60 0RF valacyclovir 1 gram tablet 1,000 mg PO DAILY Qty: 30 0RF Discontinued venlafaxine [Effexor XR] 150 mg capsule,extended release 24hr 150 mg PO DAILY alprazolam [Xanax] 2 mg tablet 2 mg PO QID pregabalin 100 mg capsule 100 mg PO BID methadone 100 mg PO DAILY Discharge Orders: Discharge Order (Routine); Ordered 10/01/24 Ordered By: Gillian Roe Diet: Advance to usual diet Activity on Discharge: As tolerated Stand Alone Forms: Patient Portal Discharge page Print Language: Amharic Care Plan Goals: Mood and Behavioral Stabilization Abstinence from Substances Health Concerns: Mood and Behavioral Stabilization Abstinence from Substances Plan of Treatment: Attend scheduled appointments Take medications as directed. Continue Methadone treatment Call/Return as needed. We suggest you AVOID medications that are SNRI's-Venlafaxine, Pristiq,Cymbalta Tapering of medications. Requip- We have started tapering. You began at 100 mg twice daily and are now at 50 mg twice daily.. We suggest you continue to taper under supervision by 0.125 mg weekly. Watch for severe restless leg symptoms and sleep disruptions. Xanax--We have started tapering. You began at 2 mg four times daily and are now at 2 mg three times daily. We suggest you continue to taper under supervision by 0.5 mg every two weeks Assessment: Dariel SI,HI,AH, VH Prepared for discharge. Agrees with plan of care
[2024-10-01 09:32] LABS: Alanine Aminotransferase 23 U/L (0-31); Albumin Level 4.4 g/dL (3.5-5.0); Alkaline Phosphatase 74 U/L (39-117); Anion Gap 13 (12-20); Aspartate Amino Transferase 24 U/L (5-31); Blood Urea Nitrogen 9 mg/dL (9-16); Calcium 9.1 mg/dL (8.4-10.2); Carbon Dioxide 32 mmol/L (22-29); Chloride 98 mmol/L (96-108); Estimated Glomerular Filt Rate > 60; Potassium 4.0 mmol/L (3.3-5.1); Sodium 139 mmol/L (135-145); Total Protein 6.7 g/dL (6.5-8.0)
== END 2024-10-01 13:36 | disposition home or self-care (01) | DRG 751 ==
PROVIDERS: Internal Medicine; Physician Assistant; Admitting Provider Psychiatry & Neurology Psychiatry; Visit Provider Clinical Nurse Specialist Psychiatric/Mental Health, Adult
DX: F33.9 Major depressive disorder, recurrent, unspecified (principal); F13.20 Sedative, hypnotic or anxiolytic dependence, uncomplicated; R45.851 Suicidal ideations; F60.3 Borderline personality disorder; F11.20 Opioid dependence, uncomplicated; Z20.822 Contact with and (suspected) exposure to COVID-19; Z87.891 Personal history of nicotine dependence; Z71.51 Drug abuse counseling and surveillance of drug abuser; Z79.899 Other long term (current) drug therapy
CPT/HCPCS: 36415; 70450; 76775; 80053; 80061; 81001; 81515; 82607; 82746; 82947; 83036; 83735; 84439; 84443; 85025; 87086; 87491; 87591; 87637

== ENCOUNTER 2024-09-11 16:02 | Outpatient (BNV) | payer MEDICAID, SELFPAY | END 2024-09-24 17:23 | PROVIDERS: Admitting Provider Psychiatry & Neurology Psychiatry; Visit Provider Student in an Organized Health Care Education/Training Program | DX: N39.41 Urge incontinence (principal) | CPT/HCPCS: 76775 ==

== ENCOUNTER 2024-09-11 16:02 | Outpatient (BNV) | payer MEDICAID, SELFPAY | END 2024-09-13 12:52 | PROVIDERS: Admitting Provider Psychiatry & Neurology Psychiatry; Visit Provider Radiology Diagnostic Radiology | DX: M79.89 Other specified soft tissue disorders (principal) | CPT/HCPCS: 70450 ==

== ENCOUNTER → 2024-09-11 16:02 | Outpatient (BNV) | payer MEDICAID, SELFPAY | PROVIDERS: Admitting Provider Psychiatry & Neurology Psychiatry; Visit Provider Clinical Nurse Specialist Psychiatric/Mental Health, Adult | DX: F33.2 Major depressive disorder, recurrent severe without psychotic features (principal); F11.20 Opioid dependence, uncomplicated; F13.20 Sedative, hypnotic or anxiolytic dependence, uncomplicated | CPT/HCPCS: 90792; 99231; 99232 ==

== ENCOUNTER → 2024-09-11 16:02 | Outpatient (BNV) | payer MEDICAID, SELFPAY | PROVIDERS: Admitting Provider Psychiatry & Neurology Psychiatry; Visit Provider Internal Medicine | DX: R10.32 Left lower quadrant pain (principal); E78.00 Pure hypercholesterolemia, unspecified; R74.02 Elevation of levels of lactic acid dehydrogenase [LDH] | CPT/HCPCS: 99222; 99499 ==